=== PATIENT | male | born 1935 | race Caucasian/White ===

== ENCOUNTER 2016-12-21 16:06 | Inpatient (IN) | payer OTHER ==
--- NOTE | ~2016-12-21 | CN ---
Consultation Report [facility] [address] [place]. [address] NAME: XAVIER SUH : 34 STATUS : ADM IN PAT#: [id number] AGE: 81 ADM/REG DATE : 12/21/16 MR#: [id number] REPORT SERV DATE: 12/22/16 DICTATED BY: KOURTNEY KENYON JR DATE: 12/22/16 REPORT STATUS : Draft TRANSCRIBED BY: MODL DATE: 12/22/16 NEPHROLOGY CONSULTATION DATE OF CONSULTATION: 12/22/2016 REASON FOR CONSULTATION: Acute kidney injury. IMPRESSION: 1. Acute kidney injury, presumed, our group has never seen him before. 2. Sepsis syndrome. 3. Community-acquired pneumonia. 4. Respiratory alkalosis. 5. Mixed metabolic acidosis, renal and lactic acidemia. 6. Pre-hospital MATHEUS inhibitor. 7. Unknown cardiac substrate. 8. Implied from medication list, ASCVD, hyperlipidemia, hypertension, and prostatic hypertrophy. 9. Acute melena this morning while on heparin infusion with worsening of azotemia. PLAN: 1. MATHEUS inhibitor interruption as you had done. The patient states he had been compliant with medications up until the time of presentation. 2. Blood pressure support as needed with volume resuscitation and assurance of adequacy of renal blood flow. 3. Preserved Langley catheter. 4. Monitor urinary output and intake, guard for volume overload. 5. Obtain outside records as possible. 6. Antibiotics are reviewed, agree. 7. Group will follow with you. HISTORY OF PRESENT ILLNESS: A gentleman apparently presented to [facility] for evaluation of illness, was found to have a picture consistent with sepsis syndrome, x-ray consistent with pneumonia on the right side and a leukocytosis. He was transferred for admission. He was found to have acute kidney injury with a creatinine of about 3.8 that has risen to a higher value this morning. He had been on MATHEUS inhibitor up until the time of his admission. He admits to poor oral nutritional intake, but had tried to maintain hydration during the week. He had taken a couple of doses of Advil or Aleve to treat myalgias. He has had no nausea, vomiting, or diarrhea. He has had some melena this morning. His hemoglobin is trivially down. The azotemia was worse. He really did not have any trouble voiding prior to hospitalization. He has never been seen by our group. PAST MEDICAL HISTORY: As outlined above, and database is incomplete. FAMILY HISTORY: Noncontributory to this illness. Consultation Report [place] [address] [place]. [address] NAME: XAVIER SUH : 34 STATUS : ADM IN PAT#: [id number] AGE: 81 ADM/REG DATE : 12/21/16 MR#: [id number] REPORT SERV DATE: 12/22/16 DICTATED BY: KOURTNEY KENYON JR DATE: 12/22/16 REPORT STATUS : Draft TRANSCRIBED BY: JOEY DATE: 12/22/16 SOCIAL HISTORY: Reformed smoker. Retired. Lives alone. Responsible for his own self-care. REVIEW OF SYSTEMS: He denies head or neck complaints. He reports shortness of breath and cough, but no chest pain or subjective palpitations. He has had some anorexia, but no nausea, no vomiting, and no diarrhea. He states he has been making urine in adequate amounts during this past week. He does not note a decrease in urinary output or difficulty with micturition. He has had no trouble with lower extremity edema or difficulty with ambulation. No neuromuscular weakness until the last 24-48 hours. Psychiatric, no complaints. PHYSICAL EXAMINATION: CONSTITUTIONAL: Older-appearing male, who awakens easily from sleep. Color is good. Skin is warm and dry, no rashes observed. Turgor is adequate. HEENT: No alopecia is appreciated. Pupils are equal. No scleral icterus. No conjunctival injection. No periorbital edema. No nasal discharge. No epistaxis. The nares are patent. Oropharynx with dry mucous membranes, and no thrush is observed. NECK: No venous distention at 45 degrees, and no carotid bruits are heard. Trachea is midline. Adenopathy is not palpable. LUNGS: He has diffuse adventitious sounds on the right, inspiratory crackles, and some expiratory wheeze. Left-sided breath sounds are clear. Air entry is symmetrical. There is no increased work of breathing appreciated. He is on supplemental oxygen. HEART: Tones are regular to auscultation without audible rub or gallop, although the heart tones are muffled. ABDOMEN: Slightly protuberant, soft, and nontender without palpable visceromegaly. There is no guarding or tenderness. Bruit is not heard. Bowel sounds are present. There is no suprapubic fullness or distention or discomfort on palpation. Langley catheter is draining a darker yellow urine. There is no scrotal or penile edema. RECTAL: Not performed. CVA tenderness is not present. EXTREMITIES: Lower extremity musculature is intact. Pulses are symmetrically diminished. Distal hair loss over the lower legs. SKIN: Intact with good turgor. No cyanosis is observed. NEUROLOGIC: Cognition and speech are normal. He interacts well with the examiner and is cooperative. He moves all extremities. Gait is not observed. PSYCHIATRIC: Affect is good, pleasant, and cooperative. DATA: This morning, sodium 137, potassium 3.6, chloride 102, CO2 of 17, BUN 108, creatinine 4.46, calcium is 8.0. White count 15,000; hemoglobin 12.8; platelets 166. On entry, he had an elevated anion gap, a respiratory alkalosis, and some renal acidemia. DF/MODL Kourtney Kenyon Jr, M.D. Consultation Report [address] [address] NAME: XAVIER SUH : 34 STATUS : ADM IN [facility]#: [id number] AGE: 81 ADM/REG DATE : 12/21/16 MR#: [id number] REPORT SERV DATE: 12/22/16 DICTATED BY: KOURTNEY KENYON JR DATE: 12/22/16 REPORT STATUS : Draft TRANSCRIBED BY: MODL DATE: 12/22/16 / [id number] CC: Robert Gutiérrez,MD SHAYNE Paul MD
--- NOTE | ~2016-12-21 | HP ---
History And Physical [place] [id number] [facility] [place]. [address] NAME: XAVIER SUH : 34 STATUS : ADM IN [facility]#: [id number] AGE: 81 ADM/REG DATE : 12/21/16 MR#: [id number] REPORT SERV DATE: 12/21/16 DICTATED BY: Travis WALLS DATE: 12/21/16 REPORT STATUS : Draft TRANSCRIBED BY: MODL DATE: 12/21/16 DATE OF ADMISSION: 12/21/2016 HISTORY OF PRESENT ILLNESS: An 81-year-old male with history of coronary artery disease, hypertension, BPH, and dyslipidemia presents to [facility] with roughly one week of progressive illness manifesting as fever, chills, weakness, malaise, anorexia, and shortness of breath. He denies rebecca chest pain. Chest x-ray reported from [facility] shows dense right pneumonia. Other issues include acute kidney injury with a creatinine of 3.8 and atrial fibrillation with rapid ventricular response. The patient has been transferred to [facility] for ongoing treatment. He is currently on IV fluids and an amiodarone infusion. He has been given Levaquin x1 dose. PAST MEDICAL HISTORY: Includes coronary artery disease with prior NM, hypertension, dyslipidemia, BPH. SOCIAL HISTORY: Ex-tobacco use. Lives independently with good family support. He is currently a DNR. REVIEW OF SYSTEMS: As per HPI. Remainder of 10-point review of systems negative for hematuria, hematochezia, or melena. He has some low back pain that is chronic in nature for which he takes over-the- counter medication. Otherwise 10-point review of systems is negative. FAMILY HISTORY: Positive for heart disease. PHYSICAL EXAMINATION: GENERAL: This is a well-developed, elderly male patient, conversant, short of breath, but no obvious distress. VITAL SIGNS: Blood pressure is 117/74, heart rate is 140 and irregular, respirations are 26. He is currently afebrile. HEENT: Pupils equal, round, and reactive to light. Extraocular muscles are intact. Oropharynx is clear. NECK: Without JVD, thyromegaly, or bruit. LUNGS: Rhonchi noted on the right with increased respiratory effort. HEART: Irregular. No audible murmur. ABDOMEN: Soft, obese. Positive bowel sounds. EXTREMITIES: No edema. Pulses are +2. Skin without rash or ecchymotic area. Joints with diffuse osteoarthritic change without synovitis or effusion. NEURO: Cranial nerves grossly intact. Motor exam is nonfocal. Sensation normal. Gait was not assessed. GENITOURINARY: Significant for Langley catheter. RECTAL: Deferred. LABORATORY DATA: Available data; sodium 132, potassium 3.8, chloride 98, bicarb 18, BUN 82, creatinine 3.8, glucose is 282. Lactate 3.6. Troponin 0.13. White count is 18.8, hemoglobin 14.9, hematocrit 44.8, platelets are 200. History And Physical [address] [place]. [address] NAME: XAVIER SUH : 34 STATUS : ADM IN PAT#: [id number] AGE: 81 ADM/REG DATE : 12/21/16 MR#: [id number] REPORT SERV DATE: 12/21/16 DICTATED BY: Travis WALLS DATE: 12/21/16 REPORT STATUS : Draft TRANSCRIBED BY: MODL DATE: 12/21/16 IMPRESSION: An 81-year-old male patient with right-sided pneumonia, acute hypoxic respiratory failure, acute kidney injury, and atrial fibrillation with rapid ventricular response. Comorbidities as outlined above. PLAN: Admit to [facility], attending Taqueria Walls. DNR per patient request. Routine vitals. Use Vapotherm O2 to keep sats greater than 90%, diabetic and soft mechanical diet. Data to include hemoglobin A1c, serial troponin, procalcitonin, strep and Legionella urinary antigen, TSH, blood culture x2, repeat CBC and electrolytes, echocardiogram with [facility] to read, hydrate with saline at 125 an hour. The patient will not need DVT prophylaxis as he will be on a heparin infusion, Cardiology protocol, due to his atrial fibrillation. Reasonable pain and nausea control. Level 2 subcu sliding scale insulin to augment glucose control. Rate control for his atrial fibrillation will be with amiodarone per protocol and Cardizem per protocol. A PICC line will be placed by the PICC team this evening. The following home medications will be continued; metoprolol 25 b.i.d., Lipitor 40 daily, aspirin 81 daily, and Flomax 0.4 one daily. We will hold other antihypertensive and nephrotoxic medications until renal function normalizes. Family has been updated at the bedside regarding treatment care plan and they are in agreement. MICHELINE/JOEY Travis Walls M.D. / [id number] CC: Xavier Delgado M.D.
--- NOTE | ~2016-12-21 | CN ---
Consultation Report [facility] [address] [place]. [address] NAME: XAVIER TERRAZAS : 34 STATUS : ADM IN PAT#: [id number] AGE: 81 ADM/REG DATE : 12/21/16 MR#: [id number] REPORT SERV DATE: 12/22/16 DICTATED BY: SHAYNE CEJA DATE: 12/22/16 REPORT STATUS : Draft TRANSCRIBED BY: MODL DATE: 12/22/16 CARDIOLOGY CONSULTATION NOTE DATE OF CONSULTATION: 12/22/2016 REQUESTING PHYSICIAN: Cardiology evaluation was requested by [facility] Emergency Medicine Service prior to admission. The patient has known coronary heart disease and elevated cardiac biomarkers with newly diagnosed atrial fibrillation. REASON FOR CONSULTATION: Elevated cardiac biomarkers and atrial fibrillation with rapid ventricular response. HISTORY OF PRESENT ILLNESS: Mr. Terrazas is a pleasant 81-year-old man with a history of coronary heart disease, status post inferior myocardial infarction with primary percutaneous coronary intervention performed in approximately the year 2013 at [facility]. The patient is well known to me from Cardiology Clinic. He has no previous history of congestive heart failure or atrial fibrillation. The patient was in his usual state of health until approximately one week prior to admission. The patient began to develop fever, chills, and generalized myalgias and malaise. The patient did not seek immediate medical treatment, but had progressive shortness of breath which eventually prompted an emergency room visit at [facility]. At the time of admission to the emergency room, the patient was found to be in atrial fibrillation with a rapid ventricular response. He was started on a diltiazem drip. Also of note, the patient was found to have a leukocytosis. At the time of my discussion with the emergency room physician, a metabolic profile was not available. However, a subsequent metabolic profile demonstrated acute renal failure with a creatinine of approximately 3.8. The patient was also found to have a mildly elevated troponin of approximately 0.12. At that time, the patient was not complaining of any acute chest pain, only extreme dyspnea, fatigue, and malaise. I have requested that the patient be admitted to the Hospital Medicine Service for suspected infectious process. The patient's workup is consistent with a right middle lobe pneumonia with sepsis. At this time, the patient reports that he is breathing relatively easily. He is on high- flow oxygen with a Vapotherm. However, the patient denies chest pain at this time. He is otherwise without specific complaints, and feels slightly improved since he was started on IV fluid rehydration and antibiotics. PAST MEDICAL HISTORY: Significant for coronary artery disease with previous myocardial infarction, hypertension, dyslipidemia, and benign prostatic hypertrophy. The patient also has a history of shingles. PAST SURGICAL HISTORY: Significant for previous percutaneous coronary intervention and Consultation Report [address] [address] NAME: XAVIER TERRAZAS : 34 STATUS : ADM IN PAT#: [id number] AGE: 81 ADM/REG DATE : 12/21/16 MR#: [id number] REPORT SERV DATE: 12/22/16 DICTATED BY: SHAYNE CEJA DATE: 12/22/16 REPORT STATUS : Draft TRANSCRIBED BY: JOEY DATE: 12/22/16 otherwise noncontributory. FAMILY HISTORY: Noncontributory. SOCIAL HISTORY: The patient has a distant history of cigarette smoking. He currently has no known history of tobacco, alcohol, or drug use. The patient lives independently. Of note, the patient has requested DNR status. ALLERGIES: THE PATIENT HAS NO KNOWN MEDICATION ALLERGIES. HOME MEDICATIONS: 1. Acetaminophen 650 mg p.o. twice daily as needed. 2. Amlodipine 5 mg p.o. q.a.m. 3. Aspirin 81 mg p.o. q.a.m. 4. Atorvastatin 40 mg p.o. at bedtime. 5. Lasix 20 mg p.o. q.a.m. 6. Lisinopril 20 mg p.o. twice daily. 7. Metoprolol tartrate 50 mg p.o. twice daily. 8. Tamsulosin 0.4 mg p.o. at bedtime. REVIEW OF SYSTEMS: A complete 12-system review was performed. The patient was complaining of some mild dysuria. He has chronic low back pain. The remainder of the 10 system review is noncontributory except for the pertinent positives and negatives noted in the history of present illness above. PHYSICAL EXAMINATION: VITAL SIGNS: Current temperature is 98.0 degrees Fahrenheit, maximum temperature is 99.6 degrees Fahrenheit, blood pressure systolic ranges 85 to 133 mmHg over 49 to 66 mmHg, heart rate is currently 113 beats per minute and irregularly irregular, respirations 20, oxygen saturation is 98% on high-flow nasal cannula oxygen. CONSTITUTIONAL: The patient is an elderly white man, who is currently mildly tachypneic, but otherwise in no acute distress. EYES: PERRL, EOMI, clear conjunctiva. HEAD/MNT: NCAT with moist mucous membranes and grossly normal hard and soft palate. NECK: Supple with no obvious thyromegaly or lymphadenopathy CARDIOVASCULAR: There is an irregularly irregular rhythm with a variable S1 and a physiologically split second heart sound. No significant murmurs, rubs, or gallops are noted. The jugular venous pressure appears normal at this time. PULMONARY: There are diffuse rhonchorous breath sounds noted in the posterior lung stuart on the right side. The left lung is grossly clear. There is no dullness to percussion noted. ABDOMINAL: Soft, non-tender, non-distended with no hepatosplenomegaly noted. EXTREMITIES: There are changes of chronic venous insufficiency with 1+ pitting edema at the ankles bilaterally. No clubbing or cyanosis is noted at this time. Consultation Report [place] [id number] [place]. [address] NAME: XAVIER TERRAZAS : 34 STATUS : ADM IN LOCATED [facility]IN [facility]#: [id number] AGE: 81 ADM/REG DATE : 12/21/16 MR#: [id number] REPORT SERV DATE: 12/22/16 DICTATED BY: SHAYNE CEJA DATE: 12/22/16 REPORT STATUS : Draft TRANSCRIBED BY: JOEY DATE: 12/22/16 MUSCULOSKELETAL: Grossly normal strength and range of motion in all extremities INTEGUMENTARY: Skin appears intact with no bruises, wounds or active lesions noted NEURO/PSYC: Alert and oriented x3, with no dysarthria, facial droop or lateralizing weakness noted. 12-LEAD EKG: A 12-lead EKG performed at [facility] shows atrial fibrillation with a rapid ventricular response. The patient has a right bundle branch block pattern with secondary ST/T-wave changes. This is unchanged in comparison to a previous EKG dated 05/24/2016. CHEST X-RAY: The patient's chest x-ray is consistent with a right middle lobe pneumonia. There is mild cephalization noted in the left lung field which may be due to prone position. No other acute cardiopulmonary process is identified. LABORATORY DATA: Cell counts [place] [address], hemoglobin 14, hematocrit 40, platelets 165. There is elevated neutrophil count of 14.1. INR is 1.5. Procalcitonin is grossly elevated at 11.92. Arterial blood gas shows a pH of 7.46, pCO2 of 24, PaO2 of 73 on 100% FiO2, B-type natriuretic peptide is mildly elevated at 235, hemoglobin A1c is 6.0. Electrolytes show a sodium of 137, potassium 3.6, chloride is 102, CO2 is 22, BUN is 108, and creatinine is 4.46 with a glucose of 283, calcium is 8.0. Occult blood test is positive. Transthoracic echocardiogram performed on 12/22/2016: This shows normal left ventricular size with low-normal systolic function and an ejection fraction of 50%. There is mild concentric left ventricular hypertrophy. Mild apical hypokinesis is noted. Right ventricular function appears normal. No significant valvular heart disease is reported. ASSESSMENT AND PLAN: 1. Newly diagnosed atrial fibrillation with rapid ventricular response: This was most likely provoked by the patient's pneumonia. For now, the patient will continue on IV heparin drip. The patient has a CHADS2-VASc score of at least 4 for age x2, hypertension, and history of cardiovascular disease. He is therefore at relatively high stroke risk. We would recommend at least temporary oral anticoagulation when appropriate. Should the patient have worsening anemia, it may be reasonable to withhold heparin and an oral anticoagulant if GI bleeding is suspected. Should the patient not convert spontaneously, we will consider transesophageal echocardiography with DC cardioversion early next week. I agree with IV amiodarone and diltiazem as necessary to maintain a heart rate less than or equal to 120 beats per minute. 2. Elevated cardiac biomarkers: This is a demand ischemia secondary to atrial fibrillation rapid ventricular response and sepsis. We would recommend no invasive workup at this time, particularly in the setting of acute renal failure. 3. Acute renal failure: Likely due to sepsis and possible dehydration. We will defer to the primary service, but consider gentle IV fluid rehydration as tolerated. 4. Coronary artery disease: Continue aspirin and atorvastatin if possible. Consultation Report [address] [place]. [address] NAME: XAVIER TERRAZAS : 34 STATUS : ADM IN LOCATED [facility]IN [facility]#: [id number] AGE: 81 ADM/REG DATE : 12/21/16 MR#: [id number] REPORT SERV DATE: 12/22/16 DICTATED BY: SHAYNE CEJA DATE: 12/22/16 REPORT STATUS : Draft TRANSCRIBED BY: JOEY DATE: 12/22/16 I will be off for this weekend. The patient currently has no active cardiovascular issues, aside from his atrial fibrillation. I will follow up with the patient next Sunday. Should acute issues arise, please call [facility] on-call Cardiology. Thank you for allowing me to participate in the care of Mr. Terrazas. JC/JOEY Shayne Ceja MD / [id number] CC: Robert Gutiérrez
--- NOTE | ~2016-12-21 | CN ---
Consultation Report [facility] [address] [place]. [address] NAME: XAVIER TERRAZAS : 34 STATUS : ADM IN [facility]#: [id number] AGE: 81 ADM/REG DATE : 12/21/16 MR#: [id number] REPORT SERV DATE: 12/22/16 DICTATED BY: MAYRA VELA DATE: 12/22/16 REPORT STATUS : Draft TRANSCRIBED BY: MODL DATE: 12/22/16 GI CONSULTATION NOTE DATE OF CONSULTATION: 12/22/2016 REASON FOR CONSULTATION: Melena, decreasing H and H. HISTORY OF PRESENT ILLNESS: Mr. Terrazas is an 81-year-old gentleman with a history of coronary artery disease, hypertension, dyslipidemia, and BPH, who initially presented to [facility] with complaint of fevers, chills, weakness, anorexia, and dyspnea. He does have right-sided pneumonia and is being treated for severe sepsis in the IMCU. He also has metabolic acidosis and elevated lactate level. He had an elevated troponin also during his admission and was placed on the heparin drip and early this morning, had melenic stool. Denies any abdominal pain. No coffee-ground or hematemesis. No nausea or vomiting and has had no further episodes since. His hemoglobin had dropped from 14.1 to 12.8, hematocrit is 40.4 to 37.1, and platelets 166. Heparin obviously has since been discontinued and the patient is placed on a Protonix drip. PAST MEDICAL HISTORY: Coronary artery disease, hypertension, BPH, and dyslipidemia. SOCIAL HISTORY: Former tobacco use. The patient is a DNR. FAMILY HISTORY: Coronary artery disease. MEDICATIONS: Reviewed. ALLERGIES: REVIEWED. PHYSICAL EXAMINATION: GENERAL: The patient is afebrile. VITAL SIGNS: His vital signs have been stable over the past 24 hours. HEENT: Atraumatic, normocephalic, and anicteric. Mucous membranes dry. CARDIAC: S1, S2. CHEST: Rhonchi right lung field. Increased work of breathing. ABDOMEN: The abdomen is soft, obese, nontender, and nondistended. Bowel sounds normoactive. LABORATORY DATA: Show WBC 15.6, hemoglobin 12.8, hematocrit 37.1, and platelets 166. Sodium 137, potassium 3.6, chloride 102, bicarb 22, BUN 108, creatinine 4.46, and glucose 283. IMPRESSION AND PLAN: Possible upper GI bleed, given melenic stools, on heparin drip, however, the heparin has since been discontinued as it was felt that his elevated troponin was more related to demand given his severe sepsis. Given his severe sepsis and pneumonia with increased work of breathing and rhonchi, risk of performing EGD at this time outweighs Consultation Report [place] [id number] [place]. [address] NAME: XAVIER TERRAZAS : 34 STATUS : ADM IN PAT#: [id number] AGE: 81 ADM/REG DATE : 12/21/16 MR#: [id number] REPORT SERV DATE: 12/22/16 DICTATED BY: MAYRA VELA DATE: 12/22/16 REPORT STATUS : Draft TRANSCRIBED BY: JOEY DATE: 12/22/16 the benefits. Continue Protonix drip for now. We will consider switching to 40 mg IV b.i.d. tomorrow pending his serial H and H and any further clinical signs of bleeding. We will continue to follow with you. I will discuss this with Dr. Ilya Reyes who will be covering over the holiday weekend. KASSANDRA/JOEY Mayra Vela MD / [id number] CC: Robert Gutiérrez
--- NOTE | ~2016-12-21 | IDS ---
Interim Discharge Summary [facility] [address] [place]. [address] NAME: XAVIER SUH : 34 STATUS : ADM IN [facility]#: [id number] AGE: 81 ADM/REG DATE : 12/21/16 MR#: [id number] REPORT SERV DATE: 01/05/17 DICTATED BY: XAVIER DELGADO DATE: 01/05/17 REPORT STATUS : Draft TRANSCRIBED BY: MODL DATE: 01/05/17 ADMISSION DATE: 12/21/2016 DISCHARGE DATE: CONSULTANTS: 1. Dr. Cooper Mae, Nephrology. 2. Dr. Jaydon Ceja, Cardiology. 3. Dr. Jaclyn Triindad, GI. 4. Dr. Cisneros, Pulmonary Critical Care. PROBLEM LIST: 1. Hypoxic respiratory failure, currently felt to be due to volume overload. 2. Community-acquired pneumonia, right lung, on admission 12/21/2016. 3. Upper GI bleed due to very large gastric and duodenal ulcer. 4. Status post hemorrhagic shock due to GI bleed. 5. Acute blood loss anemia. 6. Thrombocytopenia probably due to DIC and consumption. 7. Acute kidney injury due to shock, now improved. 8. Hypernatremia, resolved. 9. Metabolic encephalopathy. 10.Status post ventilator-dependent respiratory failure due to hemorrhagic shock. 11.Paroxysmal atrial fibrillation. 12.Previous inferior DC, treated with PCI at [place] in 2013. 13.Coagulopathy with prolonged INR, possibly due to shock and transfusions. HISTORY: The patient was transferred here from an outside hospital, [facility], for severe pneumonia. He was hypoxic. He was admitted straight to the [facility]. He, at that time, was placed on broad-spectrum antibiotics. His procalcitonin was markedly elevated at 11.92, consistent with a bacterial pneumonia. His blood cultures had no growth. The patient had atrial fibrillation with rapid ventricular response. His primary turkey boner, Dr. Ceja, saw him. He was on a heparin drip. He was felt to have demand ischemia. For a time, he was getting amiodarone. The patient developed a massive upper GI bleed, received multiple units of packed red cells and fresh frozen plasma. Hemoglobin at its lowest was 5.2 on 12/27/2016. He was seen by GI, Dr. Jaclyn Trinidad, who took him to EGD on 12/28/2016, he was found to have lots of blood in his stomach, a large gastric ulcer with a visible vessel injected and treated with heat, a very large duodenal ulcer with active hemorrhage, injected and treated with thermal therapy. She wanted him to keep on the Protonix intravenously and stay n.p.o. for several days. With his hemorrhagic shock, he was in the intensive care on the ventilator, but for a fairly short period of time. He was weaned off successfully. He did develop acute kidney injury. At presentation, his creatinine was 4.46, at its worst, 5.22. He was followed here by Nephrology, and his acute kidney injury has resolved. He also had hypernatremia with sodium Interim Discharge Summary [address] [place]. [address] NAME: XAVIER SUH : 34 STATUS : ADM IN PAT#: [id number] AGE: 81 ADM/REG DATE : 12/21/16 MR#: [id number] REPORT SERV DATE: 01/05/17 DICTATED BY: XAVIER DELGADO DATE: 01/05/17 REPORT STATUS : Draft TRANSCRIBED BY: JOEY DATE: 01/05/17 up to 164, it is currently 145. Today is the first that I am seeing him. He had audible wheezes as soon as I came in the room. His nursing staff has had to increase his FiO2 from 2 L up to 6 L. Over the last six days, he has over 10 L positive in fluid. We stopped his IV saline and I am beginning diuresis. Hopefully, he will be able to start his oral diet and succeed at being able to wean off TPN in the next few days. Nurses tell me that he has had intermittent confusion and agitation, and Precedex has been able to help calm him. He is currently n.p.o., but GI did indicate if he was alert and able to swallow, that they would be comfortable letting him start some clear liquids and advance on his diet. If that is done, TPN could be weaned off and help reduce his volume overload scenario. He has 2+ edema in all four extremities. He is noted to have a coagulopathy. His INR on presentation was 1.5, but by 12/27/2016 it was 5.3, this may be part of shock. However, by 01/03/2017, his INR is still 1.8. As far as I am aware, he did not receive any warfarin. Echocardiogram on 12/22/2016 was technically difficult. His left atrium was 3.8 cm. His left ventricular ejection fraction was 50%. He had mild concentric LVH with mild apical hypokinesis. No evidence for apical thrombus. Obviously, he is not on any anticoagulation with his massive GI bleed. His current portable chest x-ray that was just completed looks like there is much more volume overload than on previous images, so I have initiated diuresis. I am asking Speech to do a bedside swallow assessment, but I want to try him on some clear liquids and see how he tolerates that. As above, if he tolerates orals, it would be ideal to taper his diet up and taper the TPN off to reduce his volume overload status. JULIOG/MODL Xavier Delgado M.D. / [id number] CC: Robert Leyva WILLIAM P
--- NOTE | ~2016-12-21 | DS ---
Discharge Summary [facility] [address] [place]. [address] NAME: XAVIER SUH : 34 STATUS : DIS IN PAT#: [id number] AGE: 81 ADM/REG DATE : 12/21/16 MR#: [id number] REPORT SERV DATE: 01/09/17 DICTATED BY: GREG MENG DATE: 01/08/17 REPORT STATUS : Draft TRANSCRIBED BY: MODL DATE: 01/08/17 ADMISSION DATE: 12/21/2016 DISCHARGE DATE: 01/08/2017 DISCHARGE DIAGNOSES: 1. Acute respiratory failure with hypoxia. 2. Acute blood loss anemia with hemorrhagic shock. 3. Acute gastrointestinal bleed, ulcer bleeding, the patient was not on oral diet due to the ulcer bleeding. He was maintained on TPN. 4. Metabolic encephalopathy. 5. Hypervolemia. 6. Atrial fibrillation. 7. Acute kidney injury. CONSULTANTS: 1. Dr. Trinidad. 2. [facility] [place]. 3. Critical Care Management. HISTORY OF PRESENT ILLNESS: This is an 81-year-old male patient, who came to the hospital with respiratory failure. Please see dictated interim discharge summary. HOSPITAL COURSE: I resumed care three days prior to discharge. The patient remained in IMCU with BiPAP support due to the worsening respiratory failure with hypoxia and is thought to be related with volume overload at the end of his hospital course. He was remaining in DNR status. He was kept on a TPN; however, he did have a speech evaluation last Sunday. He was able to be taking oral diet with pureed diet; however, at the same time, his mental status and his breathing status got worse. He was maintained on BiPAP when I assumed the case three days ago. He was made a DNR after a long discussion with other physicians multiple times prior to my care. The patient was treated with intravenous diuretics with maximum support of BiPAP and he was maintained on TPN. However, his respiratory status got worse and the patient's family has been notified and they decided to withdraw the care due to his worsening status with not improving clinical status along with his wishes initially discussed with the family. Therefore, the noninvasive ventilator support was withdrawn and the patient was pronounced to be at 1725 hours, 02/07/2017. DICTATED BY: Greg Meng M.D. EKL/MODL Greg Meng M.D. Discharge Summary [address] [address] NAME: XAVIER SUH : 34 STATUS : DIS IN PAT#: [id number] AGE: 81 ADM/REG DATE : 12/21/16 MR#: [id number] REPORT SERV DATE: 01/09/17 DICTATED BY: GREG MENG DATE: 01/08/17 REPORT STATUS : Draft TRANSCRIBED BY: MODL DATE: 01/08/17 / [id number] CC: Robert Macdonald
--- NOTE | ~2016-12-21 | EGD ---
EGD REPORT [facility] [address] [address] NAME: XAVIER TERRAZAS : 34 STATUS : ADM IN PAT#: [id number] AGE: 81 ADM/REG DATE : 12/21/16 MR#: [id number] REPORT SERV DATE: 12/28/16 DICTATED BY: MAYRA VELA DATE: 12/28/16 REPORT STATUS : Draft TRANSCRIBED BY: [employer] DATE: 12/28/16 [facility] Patient Name: Xavier Terrazas Date of : 1935 Attending MD: MAYRA VELA, Procedure Date No Time: 12/27/2016 Procedure: Upper GI endoscopy Indications: Acute post hemorrhagic anemia, Coffee-ground emesis, Melena Medicines: Propofol per Anesthesia Complications: No immediate complications. Estimated blood loss: Minimal. Procedure: Pre-Anesthesia Assessment: - ASA Grade Assessment: IV - A patient with severe systemic disease that is a constant threat to life. After obtaining informed consent, the endoscope was passed under direct vision. Throughout the procedure, the patient's blood pressure, pulse, and oxygen saturations were monitored continuously. The GIF [id number] was introduced through the mouth, and advanced to the duodenal bulb. The upper GI endoscopy was performed with difficulty due to excessive bleeding. Successful completion of the procedure was aided by controlling the bleeding and lavage. The patient tolerated the procedure well. Findings: The examined esophagus was normal. The Z-line was found 42 cm from the incisors. Clotted blood was found in the gastric fundus and in the gastric body. Extensive lavage was administered and despite attempts at clearance the fundus was not completely visualized. One non-bleeding cratered gastric ulcer with a visible vessel was found in the cardia. The lesion was 12 mm in largest dimension. Area was successfully injected with 3 mL of a 1:10,000 solution of epinephrine for hemostasis. Coagulation for hemostasis using bipolar probe was successful. Estimated blood loss: none. One spurting cratered duodenal ulcer with spurting, pulsating hemorrhage (Brayan Class Ia), suggestive of arterial bleed, and there were two visible vessels were found in the duodenal bulb. The lesion was 25 mm in largest dimension and took up approximately 50% of the circumferential lumen. Hemostatic clipping was unsuccessful despite one attempt as the area of pulsating hemorrhage was in the middle of the ulcer and surrounded by deep ulcerative and friable tissue and no healthy mucosa was near enough to grab with the endoclip. Area was subsequently EGD REPORT [address] [place]. [address] NAME: XAVIER TERRAZAS : 34 STATUS : ADM IN [facility]#: [id number] AGE: 81 ADM/REG DATE : 12/21/16 MR#: [id number] REPORT SERV DATE: 12/28/16 DICTATED BY: MAYRA VELA DATE: 12/28/16 REPORT STATUS : Draft TRANSCRIBED BY: [facility] DATE: 12/28/16 successfully injected with 12 mL of a 1:10,000 solution of epinephrine for hemostasis. Coagulation for hemostasis using bipolar probe was successful. Estimated blood loss was minimal. Clotted blood was found in the duodenal bulb and obstructed advancement into the second portion of the duodenum and so D2 was not visualized. Impression: - Normal esophagus. - Z-line 42 cm from the incisors. - Clotted blood in the gastric fundus and in the gastric body. - Gastric ulcer containing visible vessel. Injected. Treated with thermal therapy. - One duodenal ulcer with spurting hemorrhage (Brayan Class Ia). Treatment not successful. Injected. Treated with thermal therapy. - Blood in the duodenal bulb. Recommendation: - NPO. - Continue Protonix (pantoprazole): 8 mg/hr IV by continuous infusion. - Check hemoglobin and hematocrit q 6 hours until stable and transfuse as needed. - Check platelets now. - Maintain/optimize hemodynamic status. Procedure Code(s): --- Professional --- 28654, Esophagogastroduodenoscopy, flexible, transoral; with control of bleeding, any method Diagnosis Code(s): --- Professional --- K92.2, Gastrointestinal hemorrhage, unspecified K25.4, Chronic or unspecified gastric ulcer with hemorrhage K26.4, Chronic or unspecified duodenal ulcer with hemorrhage D62, Acute posthemorrhagic anemia K92.0, Hematemesis K92.1, Melena CPT copyright 2013 [employer]. All rights reserved. The codes documented in this report are preliminary and upon medical biller coder review may be revised to meet current compliance requirements. MAYRA VELA, ALESIA REPORT [facility] [address] [address] NAME: XAVIER TERRAZAS : 34 STATUS : ADM IN [facility]#: [id number] AGE: 81 ADM/REG DATE : 12/21/16 MR#: [id number] REPORT SERV DATE: 12/28/16 DICTATED BY: MAYRA VELA DATE: 12/28/16 REPORT STATUS : Draft TRANSCRIBED BY: [employer] DATE: 12/28/16 12/28/2016 9:31 AM This report has been signed electronically. Number of Addenda: 0 Note Initiated On: 12/27/2016 7:45 PM Scope Withdrawal Time 0 hours 0 minutes 0 seconds [address] [address]
[2016-12-21] MEDS ORDERED: LOP50 PO (16:59)
[2016-12-21] MEDS ORDERED: PRIN20 PO (16:59)
[2016-12-21] MEDS ORDERED: L20 PO (17:00)
[2016-12-21] MEDS ORDERED: ASAB PO (17:00)
[2016-12-21] MEDS ORDERED: FLOMAX4 PO (17:00)
[2016-12-21] MEDS ORDERED: LIPITOR40 PO (17:00)
[2016-12-21] MEDS ORDERED: NORV5 PO (17:00)
[2016-12-21] MEDS ORDERED: T PO (17:01)
[2016-12-21 19:32] LABS: ULTRASENSITIVE TSH 0.558 MCIU/ML (0.358-3.740)
[2016-12-21 20:58] LABS: BASOPHILS 0.1 %; BASOPHILS ABSOLUTE 0.02 10/3/uL (0.0-0.16); EOSINOPHILS 0 %; HEMATOCRIT 40.4 % (40.0-51.0); HEMOGLOBIN 14.1 g/dL (13.6-17.8); IMMATURE GRANULOCYTES 0.4 %; IMMATURE GRANULOCYTES ABSOLUTE 0.08 10/3/uL (0.0-0.11); LYMPHOCYTES ABSOLUTE 1.07 10/3/uL (0.67-4.30); MEAN CORPUS HGB CONC 34.9 g/dL (32.0-36.0); MEAN CORPUSCULAR VOLUME 83.1 fL (80-100); MONOCYTES 14.5 %; NEUTROPHILS ABSOLUTE 14.12 10/3/uL (2.02-8.40); PLATELET COUNT 165 10/3/uL (150-400); RBC DISTRIBUTION WIDTH 15.7 % (12.0-16.0); RED CELL COUNT 4.86 10/6/uL (4.7-6.1); WHITE BLOOD CELLS 17.9 10/3/uL (4.5-10.5)
[2016-12-21 21:01] LABS: MANUAL DIFF NO %
[2016-12-21 21:11] LABS: INTERNATIONAL NORMAL RATI 1.5 UNITS (-); PARTIAL THROMBO TIME 37.4 SEC (22.5-37.2); PROTIME (NOT ORD) 18.4 SEC (12.0-14.5)
[2016-12-21 21:15] LABS: PROCALCITONIN 11.92 ng/mL (<0.5)
[2016-12-21 21:46] LABS: ALLENS TEST Pos; BE (BASE EXCESS) -4.9 MEQ/L (0 +/- 2.5); CARBOXYHEMOGLOBIN 0.8 % (0-3); HEMOBLOGIN CONTENT 13.8 G/DL (14-18); INSTRUMENT SERIAL # 8083; METHEMOGLOBIN 0.3 % (0-3); O2 CONTENT 18.2 VOL% (18-24); OPERATOR ID 30013; PCO2 (CO2 TENSION) 24 MMHG (35-45); PO2 (O2 TENSION) 73 MMHG (79-93); SAMPLE Arterial; pH 7.46 (7.37-7.43)
[2016-12-22 04:09] LABS: BASOPHILS 0.1 %; BASOPHILS ABSOLUTE 0.01 10/3/uL (0.0-0.16); EOSINOPHILS 0 %; HEMATOCRIT 37.1 % (40.0-51.0); HEMOGLOBIN 12.8 g/dL (13.6-17.8); IMMATURE GRANULOCYTES 0.6 %; LYMPHOCYTES 8.7 %; LYMPHOCYTES ABSOLUTE 1.36 10/3/uL (0.67-4.30); MEAN CORPUS HGB CONC 34.5 g/dL (32.0-36.0); MEAN CORPUSCULAR VOLUME 84.1 fL (80-100); MEAN PLATELET VOLUME 10.7 fL (9.2-13.0); MONOCYTES 11.5 %; NEUTROPHILS 79.1 %; NEUTROPHILS ABSOLUTE 12.35 10/3/uL (2.02-8.40); PLATELET COUNT 166 10/3/uL (150-400); RBC DISTRIBUTION WIDTH 15.7 % (12.0-16.0); RED CELL COUNT 4.41 10/6/uL (4.7-6.1); WHITE BLOOD CELLS 15.6 10/3/uL (4.5-10.5)
[2016-12-22 04:12] LABS: MANUAL DIFF NO %
[2016-12-22 04:29] LABS: CHLORIDE, SERUM 102 MMOL/L (96-112); CO2 (CARBON DIOXIDE) 22 MMOL/L (24-34); CREATININE 4.46 MG/DL (0.70-1.30); GFR AFRICAN AMERICAN 13 ML/MIN (>=60); GFR NON AFRICAN AMERICAN 11 ML/MIN (>=60); GLUCOSE, SERUM 283 MG/DL (60-99); POTASSIUM, SERUM 3.6 MMOL/L (3.5-5.3); SODIUM, SERUM 137 MMOL/L (135-148)
[2016-12-22 04:31] LABS: BUN (BLOOD UREA NITROGEN) 108 MG/DL (6-23)
[2016-12-23 04:24] LABS: BASOPHILS 0 %; EOSINOPHILS 0.1 %; EOSINOPHILS ABSOLUTE 0.01 10/3/uL (0.0-0.53); IMMATURE GRANULOCYTES 0.6 %; IMMATURE GRANULOCYTES ABSOLUTE 0.05 10/3/uL (0.0-0.11); LYMPHOCYTES 9.1 %; LYMPHOCYTES ABSOLUTE 0.78 10/3/uL (0.67-4.30); MEAN CORPUS HGB CONC 33.8 g/dL (32.0-36.0); MEAN CORPUSCULAR HEMOGLOB 28.6 pg (26.0-34.0); MEAN CORPUSCULAR VOLUME 84.5 fL (80-100); MEAN PLATELET VOLUME 10.4 fL (9.2-13.0); MONOCYTES 12.5 %; MONOCYTES ABSOLUTE 1.07 10/3/uL (0.21-1.20); NEUTROPHILS 77.7 %; NEUTROPHILS ABSOLUTE 6.66 10/3/uL (2.02-8.40); PLATELET COUNT 147 10/3/uL (150-400)
[2016-12-23 04:25] LABS: HEMOGLOBIN 9.8 g/dL (13.6-17.8); RED CELL COUNT 3.43 10/6/uL (4.7-6.1); WHITE BLOOD CELLS 8.6 10/3/uL (4.5-10.5)
[2016-12-23 04:27] LABS: MANUAL DIFF NO %
[2016-12-23 04:41] LABS: A/G RATIO 0.5 (0.7-1.9); ALBUMIN 1.5 G/DL (3.5-5.0); ALKALINE PHOSPHATASE 81 U/L (45-117); CALCIUM, SERUM 7.3 MG/DL (8.5-10.4); CHLORIDE, SERUM 109 MMOL/L (96-112); GLOBULIN 2.8 G/DL (2.5-4.1); POTASSIUM, SERUM 3.5 MMOL/L (3.5-5.3); SGOT(AST) 102 U/L (5-40); SGPT(ALT) 55 U/L (5-65); SODIUM, SERUM 138 MMOL/L (135-148); TOTAL BILIRUBIN 0.9 MG/DL (0-1.2); TOTAL PROTEIN 4.3 G/DL (6.0-8.5)
[2016-12-23 04:42] LABS: BUN (BLOOD UREA NITROGEN) 140 MG/DL (6-23); CO2 (CARBON DIOXIDE) 17 MMOL/L (24-34); CREATININE 5.22 MG/DL (0.70-1.30); GFR AFRICAN AMERICAN 11 ML/MIN (>=60); GFR NON AFRICAN AMERICAN 9 ML/MIN (>=60); GLUCOSE, SERUM 188 MG/DL (60-99)
[2016-12-23 10:50] LABS: TROPONIN I 0.03 NG/ML (<0.05)
[2016-12-23 10:58] LABS: ASCORBIC ACID (UR NOT ORDER) NEG (NEG); BILIRUBIN, URINE NEGATIVE (NEG); KETONE, URINE NEGATIVE (NEG); LEUKOCYTE ESTERASE(NOT OR TRACE (NEG); WBC (NOT ORDERED) (RFLEX) 6 (0-5)
[2016-12-23 12:19] LABS: HEMOGLOBIN 9.1 g/dL (13.6-17.8)
[2016-12-24 06:26] LABS: BASOPHILS 0.2 %; BASOPHILS ABSOLUTE 0.01 10/3/uL (0.0-0.16); EOSINOPHILS 2.7 %; EOSINOPHILS ABSOLUTE 0.16 10/3/uL (0.0-0.53); HEMATOCRIT 25.8 % (40.0-51.0); HEMOGLOBIN 8.6 g/dL (13.6-17.8); IMMATURE GRANULOCYTES 0.9 %; IMMATURE GRANULOCYTES ABSOLUTE 0.05 10/3/uL (0.0-0.11); LYMPHOCYTES 13.7 %; MEAN CORPUS HGB CONC 33.3 g/dL (32.0-36.0); MEAN CORPUSCULAR HEMOGLOB 28.1 pg (26.0-34.0); MEAN CORPUSCULAR VOLUME 84.3 fL (80-100); MEAN PLATELET VOLUME 10.6 fL (9.2-13.0); MONOCYTES 11.8 %; MONOCYTES ABSOLUTE 0.69 10/3/uL (0.21-1.20); NEUTROPHILS 70.7 %; NEUTROPHILS ABSOLUTE 4.12 10/3/uL (2.02-8.40); PLATELET COUNT 131 10/3/uL (150-400); RBC DISTRIBUTION WIDTH 16.2 % (12.0-16.0); RED CELL COUNT 3.06 10/6/uL (4.7-6.1); WHITE BLOOD CELLS 5.8 10/3/uL (4.5-10.5)
[2016-12-24 06:30] LABS: MANUAL DIFF NO %
[2016-12-24 06:38] LABS: % IRON SAT 20 % (20-50); CALCIUM, SERUM 8.2 MG/DL (8.5-10.4); CHLORIDE, SERUM 113 MMOL/L (96-112); CO2 (CARBON DIOXIDE) 18 MMOL/L (24-34); FERRITIN 1759 NG/ML (26-388); IRON BINDING CAPACITY 99 MCG/DL (250-450); IRON, SERUM 20 MCG/DL (35-150); PHOSPHORUS, SERUM 3.6 MG/DL (2.5-4.5); POTASSIUM, SERUM 3.4 MMOL/L (3.5-5.3); SGOT(AST) 151 U/L (5-40); SGPT(ALT) 72 U/L (5-65); SODIUM, SERUM 144 MMOL/L (135-148); TOTAL BILIRUBIN 0.7 MG/DL (0-1.2); TOTAL PROTEIN 4.5 G/DL (6.0-8.5)
[2016-12-24 06:39] LABS: A/G RATIO 0.7 (0.7-1.9); ALBUMIN 1.9 G/DL (3.5-5.0); ALKALINE PHOSPHATASE 109 U/L (45-117); BUN (BLOOD UREA NITROGEN) 128 MG/DL (6-23); CREATININE 4.33 MG/DL (0.70-1.30); GFR AFRICAN AMERICAN 14 ML/MIN (>=60); GFR NON AFRICAN AMERICAN 12 ML/MIN (>=60); GLOBULIN 2.6 G/DL (2.5-4.1); GLUCOSE, SERUM 91 MG/DL (60-99)
[2016-12-24 13:03] LABS: HEMATOCRIT 25.1 % (40.0-51.0); HEMOGLOBIN 8.4 g/dL (13.6-17.8)
[2016-12-24 18:57] LABS: HEMATOCRIT 26.4 % (40.0-51.0); HEMOGLOBIN 8.8 g/dL (13.6-17.8)
[2016-12-25 04:43] LABS: BASOPHILS 0.2 %; BASOPHILS ABSOLUTE 0.01 10/3/uL (0.0-0.16); EOSINOPHILS 2.3 %; EOSINOPHILS ABSOLUTE 0.15 10/3/uL (0.0-0.53); HEMOGLOBIN 9.2 g/dL (13.6-17.8); IMMATURE GRANULOCYTES 1.2 %; IMMATURE GRANULOCYTES ABSOLUTE 0.08 10/3/uL (0.0-0.11); LYMPHOCYTES 11.8 %; LYMPHOCYTES ABSOLUTE 0.76 10/3/uL (0.67-4.30); MEAN CORPUS HGB CONC 34.1 g/dL (32.0-36.0); MEAN CORPUSCULAR HEMOGLOB 28.8 pg (26.0-34.0); MEAN CORPUSCULAR VOLUME 84.6 fL (80-100); MEAN PLATELET VOLUME 10.3 fL (9.2-13.0); MONOCYTES 13.4 %; MONOCYTES ABSOLUTE 0.86 10/3/uL (0.21-1.20); NEUTROPHILS 71.1 %; NEUTROPHILS ABSOLUTE 4.57 10/3/uL (2.02-8.40); PLATELET COUNT 162 10/3/uL (150-400); RED CELL COUNT 3.19 10/6/uL (4.7-6.1); WHITE BLOOD CELLS 6.4 10/3/uL (4.5-10.5)
[2016-12-25 04:45] LABS: MANUAL DIFF NO %
[2016-12-25 04:57] LABS: CALCIUM, SERUM 8.3 MG/DL (8.5-10.4); CHLORIDE, SERUM 116 MMOL/L (96-112); CO2 (CARBON DIOXIDE) 19 MMOL/L (24-34); PHOSPHORUS, SERUM 3.6 MG/DL (2.5-4.5); POTASSIUM, SERUM 3.6 MMOL/L (3.5-5.3); SODIUM, SERUM 147 MMOL/L (135-148)
[2016-12-25 05:03] LABS: BUN (BLOOD UREA NITROGEN) 110 MG/DL (6-23); CREATININE 3.41 MG/DL (0.70-1.30); GFR AFRICAN AMERICAN 18 ML/MIN (>=60); GFR NON AFRICAN AMERICAN 16 ML/MIN (>=60); GLUCOSE, SERUM 138 MG/DL (60-99)
[2016-12-26 04:35] LABS: BASOPHILS 0.2 %; BASOPHILS ABSOLUTE 0.02 10/3/uL (0.0-0.16); EOSINOPHILS 0.8 %; EOSINOPHILS ABSOLUTE 0.08 10/3/uL (0.0-0.53); HEMATOCRIT 23.3 % (40.0-51.0); HEMOGLOBIN 7.6 g/dL (13.6-17.8); IMMATURE GRANULOCYTES 4.4 %; IMMATURE GRANULOCYTES ABSOLUTE 0.44 10/3/uL (0.0-0.11); LYMPHOCYTES 9.3 %; LYMPHOCYTES ABSOLUTE 0.92 10/3/uL (0.67-4.30); MANUAL DIFF NO %; MEAN CORPUS HGB CONC 32.6 g/dL (32.0-36.0); MEAN CORPUSCULAR HEMOGLOB 28.1 pg (26.0-34.0); MEAN CORPUSCULAR VOLUME 86.3 fL (80-100); MEAN PLATELET VOLUME 9.7 fL (9.2-13.0); MONOCYTES 7.9 %; MONOCYTES ABSOLUTE 0.78 10/3/uL (0.21-1.20); NEUTROPHILS 77.4 %; NEUTROPHILS ABSOLUTE 7.65 10/3/uL (2.02-8.40); PLATELET COUNT 229 10/3/uL (150-400); RBC DISTRIBUTION WIDTH 16.6 % (12.0-16.0); WHITE BLOOD CELLS 9.9 10/3/uL (4.5-10.5)
[2016-12-26 04:51] LABS: A/G RATIO 0.6 (0.7-1.9); ALBUMIN 1.7 G/DL (3.5-5.0); CALCIUM, SERUM 8.2 MG/DL (8.5-10.4); CHLORIDE, SERUM 122 MMOL/L (96-112); CO2 (CARBON DIOXIDE) 22 MMOL/L (24-34); GLOBULIN 2.8 G/DL (2.5-4.1); PHOSPHORUS, SERUM 3.1 MG/DL (2.5-4.5); POTASSIUM, SERUM 4.1 MMOL/L (3.5-5.3); SGOT(AST) 230 U/L (5-40); SGPT(ALT) 122 U/L (5-65); SODIUM, SERUM 153 MMOL/L (135-148); TOTAL BILIRUBIN 0.5 MG/DL (0-1.2); TOTAL PROTEIN 4.5 G/DL (6.0-8.5)
[2016-12-26 04:52] LABS: ALKALINE PHOSPHATASE 522 U/L (45-117); BUN (BLOOD UREA NITROGEN) 99 MG/DL (6-23); CREATININE 2.76 MG/DL (0.70-1.30); GFR AFRICAN AMERICAN 24 ML/MIN (>=60); GFR NON AFRICAN AMERICAN 20 ML/MIN (>=60); GLUCOSE, SERUM 190 MG/DL (60-99)
[2016-12-27 04:00] LABS: INTERNATIONAL NORMAL RATI 5.3 UNITS (-); PROTIME (NOT ORD) 48.3 SEC (12.0-14.5)
[2016-12-27 04:02] LABS: A/G RATIO 0.7 (0.7-1.9); ALBUMIN 1.8 G/DL (3.5-5.0); CALCIUM, SERUM 7.9 MG/DL (8.5-10.4); CHLORIDE, SERUM 121 MMOL/L (96-112); CO2 (CARBON DIOXIDE) 19 MMOL/L (24-34); GLOBULIN 2.7 G/DL (2.5-4.1); GLUCOSE, SERUM 204 MG/DL (60-99); PHOSPHORUS, SERUM 3.6 MG/DL (2.5-4.5); POTASSIUM, SERUM 4.3 MMOL/L (3.5-5.3); SGOT(AST) 508 U/L (5-40); SGPT(ALT) 243 U/L (5-65); SODIUM, SERUM 151 MMOL/L (135-148); TOTAL BILIRUBIN 0.5 MG/DL (0-1.2); TOTAL PROTEIN 4.5 G/DL (6.0-8.5)
[2016-12-27 04:03] LABS: ALKALINE PHOSPHATASE 300 U/L (45-117); BUN (BLOOD UREA NITROGEN) 125 MG/DL (6-23); CREATININE 4.22 MG/DL (0.70-1.30); GFR AFRICAN AMERICAN 14 ML/MIN (>=60); GFR NON AFRICAN AMERICAN 12 ML/MIN (>=60); HEMOGLOBIN 8.5 g/dL (13.6-17.8); MEAN CORPUS HGB CONC 33.1 g/dL (32.0-36.0); MEAN CORPUSCULAR HEMOGLOB 29.3 pg (26.0-34.0); MEAN CORPUSCULAR VOLUME 88.6 fL (80-100); MEAN PLATELET VOLUME 9.9 fL (9.2-13.0); NUCLEATED RED BLOOD CELLS 1.1 /100WBC (0-0); RBC DISTRIBUTION WIDTH 16.1 % (12.0-16.0)
[2016-12-27 04:04] LABS: HEMATOCRIT 25.7 % (40.0-51.0); MANUAL DIFF YES %; PLATELET COUNT 355 10/3/uL (150-400); WHITE BLOOD CELLS 31.1 10/3/uL (4.5-10.5)
[2016-12-27 04:11] LABS: BAND NEUTROPHILS 3 %; EOSINOPHILS 2 %; EOSINOPHILS ABSOLUTE (CALC) 0.62 10/3/uL (0.0-0.53); IMMATURE GRANS ABSOLUTE (CALC) 1.56 10/3/uL (0.0-0.11); LYMPHOCYTES 7 %; LYMPHOCYTES ABSOLUTE (CALC) 2.18 10/3/uL (0.67-4.30); METAMYELOCYTES 3 %; MONOCYTES 5 %; MONOCYTES ABSOLUTE (CALC) 1.56 10/3/uL (0.21-1.20); MYELOCYTES 2 %; NEUTROPHILS ABSOLUTE (CALC) 25.19 10/3/uL (2.02-8.40); PLATELET ESTIMATE ADQ (ADEQUATE); RBC MORPHOLOGY NORM (NORMAL); SEGMENTED NEUTROPHIL (0) 78 %; TOTAL NUCLEATED CELLS 100; TOXIC GRANULATION 1+
[2016-12-27 07:47] LABS: MEAN CORPUS HGB CONC 32.7 g/dL (32.0-36.0); MEAN CORPUSCULAR HEMOGLOB 29.5 pg (26.0-34.0); MEAN CORPUSCULAR VOLUME 90.3 fL (80-100); MEAN PLATELET VOLUME 10.4 fL (9.2-13.0); NUCLEATED RED BLOOD CELLS 5.8 /100WBC (0-0); PLATELET COUNT 366 10/3/uL (150-400); RBC DISTRIBUTION WIDTH 16.4 % (12.0-16.0); RED CELL COUNT 1.76 10/6/uL (4.7-6.1); WHITE BLOOD CELLS 46.7 10/3/uL (4.5-10.5)
[2016-12-27 07:48] LABS: HEMATOCRIT 15.9 % (40.0-51.0); HEMOGLOBIN 5.2 g/dL (13.6-17.8); MANUAL DIFF YES %
[2016-12-27 08:03] LABS: BUN (BLOOD UREA NITROGEN) 112 MG/DL (6-23); CALCIUM, SERUM 6.3 MG/DL (8.5-10.4); CHLORIDE, SERUM 116 MMOL/L (96-112); CO2 (CARBON DIOXIDE) 16 MMOL/L (24-34); CREATININE 4.06 MG/DL (0.70-1.30); GFR AFRICAN AMERICAN 15 ML/MIN (>=60); GFR NON AFRICAN AMERICAN 13 ML/MIN (>=60); GLUCOSE, SERUM 454 MG/DL (60-99); PHOSPHORUS, SERUM 6.5 MG/DL (2.5-4.5); POTASSIUM, SERUM 3.9 MMOL/L (3.5-5.3); SODIUM, SERUM 150 MMOL/L (135-148)
[2016-12-27 08:12] LABS: BAND NEUTROPHILS 8 %; EOSINOPHILS 2 %; EOSINOPHILS ABSOLUTE (CALC) 0.93 10/3/uL (0.0-0.53); IMMATURE GRANS ABSOLUTE (CALC) 0.93 10/3/uL (0.0-0.11); LYMPHOCYTES 11 %; LYMPHOCYTES ABSOLUTE (CALC) 5.14 10/3/uL (0.67-4.30); METAMYELOCYTES 2 %; POLYCHROMASIA 3+ (>10/OIF) (0-1/OIF); SEGMENTED NEUTROPHIL (0) 77 %; TOTAL NUCLEATED CELLS 100
[2016-12-27 08:13] LABS: PLATELET ESTIMATE ADQ (ADEQUATE)
[2016-12-27 12:54] LABS: HEMOGLOBIN 6.7 g/dL (13.6-17.8); MEAN CORPUS HGB CONC 32.7 g/dL (32.0-36.0); MEAN CORPUSCULAR HEMOGLOB 28.9 pg (26.0-34.0); MEAN CORPUSCULAR VOLUME 88.4 fL (80-100); MEAN PLATELET VOLUME 9.8 fL (9.2-13.0); PLATELET COUNT 404 10/3/uL (150-400); RED CELL COUNT 2.32 10/6/uL (4.7-6.1); WHITE BLOOD CELLS 52.7 10/3/uL (4.5-10.5)
[2016-12-27 12:55] LABS: HEMATOCRIT 20.5 % (40.0-51.0); MANUAL DIFF YES %
[2016-12-27 13:04] LABS: INTERNATIONAL NORMAL RATI 3.5 UNITS (-); PROTIME (NOT ORD) 34.6 SEC (12.0-14.5)
[2016-12-27 13:10] LABS: BAND NEUTROPHILS 7 %; IMMATURE GRANS ABSOLUTE (CALC) 2.64 10/3/uL (0.0-0.11); LYMPHOCYTES 4 %; LYMPHOCYTES ABSOLUTE (CALC) 2.11 10/3/uL (0.67-4.30); METAMYELOCYTES 5 %; MONOCYTES 6 %; MONOCYTES ABSOLUTE (CALC) 3.16 10/3/uL (0.21-1.20); SEGMENTED NEUTROPHIL (0) 78 %; TOTAL NUCLEATED CELLS 100
[2016-12-27 13:11] LABS: PLATELET ESTIMATE SLT INC (ADEQUATE); RBC MORPHOLOGY NORM (NORMAL)
[2016-12-27 18:18] LABS: BASOPHILS 0.6 %; BASOPHILS ABSOLUTE 0.23 10/3/uL (0.0-0.16); EOSINOPHILS 0.3 %; EOSINOPHILS ABSOLUTE 0.12 10/3/uL (0.0-0.53); IMMATURE GRANULOCYTES 7.7 %; IMMATURE GRANULOCYTES ABSOLUTE 2.76 10/3/uL (0.0-0.11); INTERNATIONAL NORMAL RATI 1.6 UNITS (-); LYMPHOCYTES 9.7 %; LYMPHOCYTES ABSOLUTE 3.51 10/3/uL (0.67-4.30); MEAN CORPUS HGB CONC 33.3 g/dL (32.0-36.0); MEAN CORPUSCULAR VOLUME 86.9 fL (80-100); MEAN PLATELET VOLUME 9.4 fL (9.2-13.0); MONOCYTES 7.2 %; MONOCYTES ABSOLUTE 2.59 10/3/uL (0.21-1.20); NEUTROPHILS 74.5 %; NEUTROPHILS ABSOLUTE 26.83 10/3/uL (2.02-8.40); NUCLEATED RED BLOOD CELLS 4.3 /100WBC (0-0); RBC DISTRIBUTION WIDTH 15.8 % (12.0-16.0)
[2016-12-27 18:19] LABS: HEMATOCRIT 15.3 % (40.0-51.0); HEMOGLOBIN 5.1 g/dL (13.6-17.8); PLATELET COUNT 259 10/3/uL (150-400); PROTIME (NOT ORD) 19.1 SEC (12.0-14.5); RED CELL COUNT 1.76 10/6/uL (4.7-6.1)
[2016-12-27 18:20] LABS: MANUAL DIFF NO %
[2016-12-27 18:39] LABS: BAND NEUTROPHILS 3 %; EOSINOPHILS 3 %; EOSINOPHILS ABSOLUTE (CALC) 1.08 10/3/uL (0.0-0.53); LYMPHOCYTES 15 %; MONOCYTES 4 %; MONOCYTES ABSOLUTE (CALC) 1.44 10/3/uL (0.21-1.20); NEUTROPHILS ABSOLUTE (CALC) 28.08 10/3/uL (2.02-8.40); PLATELET ESTIMATE ADQ (ADEQUATE); SEGMENTED NEUTROPHIL (0) 75 %; TOTAL NUCLEATED CELLS 100
[2016-12-27 18:40] LABS: ELLIPTOCYTES 1+ (3-10/OIF) (0-2/OIF)
[2016-12-27 21:44] LABS: ALLENS TEST Pos; BE (BASE EXCESS) -7.2 MEQ/L (0 +/- 2.5); CARBOXYHEMOGLOBIN 0.3 % (0-3); HCO3 (ACTUAL BICARBONATE) 19.9 MEQ/L (23-27); HEMOBLOGIN CONTENT 9.8 G/DL (14-18); INSTRUMENT SERIAL # 8083; METHEMOGLOBIN 0.4 % (0-3); MODE SIMV; OPERATOR ID 35785; PCO2 (CO2 TENSION) 47 MMHG (35-45); PO2 (O2 TENSION) 215 MMHG (79-93); SAMPLE Arterial; TIDAL VOLUME 700 ML; pH 7.24 (7.37-7.43)
[2016-12-28 02:08] LABS: HEMATOCRIT 26.2 % (40.0-51.0); HEMOGLOBIN 8.7 g/dL (13.6-17.8)
[2016-12-28 04:58] LABS: HEMATOCRIT 25.4 % (40.0-51.0); HEMOGLOBIN 8.7 g/dL (13.6-17.8)
[2016-12-28 09:58] LABS: HEMATOCRIT 24.7 % (40.0-51.0); HEMOGLOBIN 8.6 g/dL (13.6-17.8)
[2016-12-28 10:11] LABS: BUN (BLOOD UREA NITROGEN) 136 MG/DL (6-23); CALCIUM, SERUM 7.4 MG/DL (8.5-10.4); CHLORIDE, SERUM 121 MMOL/L (96-112); CO2 (CARBON DIOXIDE) 24 MMOL/L (24-34); CREATININE 4.35 MG/DL (0.70-1.30); GFR AFRICAN AMERICAN 14 ML/MIN (>=60); GFR NON AFRICAN AMERICAN 12 ML/MIN (>=60); GLUCOSE, SERUM 252 MG/DL (60-99); POTASSIUM, SERUM 3.9 MMOL/L (3.5-5.3); SODIUM, SERUM 153 MMOL/L (135-148)
[2016-12-28 10:14] LABS: HEMOGLOBIN 8.6 g/dL (13.6-17.8); MEAN CORPUS HGB CONC 34.4 g/dL (32.0-36.0); MEAN CORPUSCULAR HEMOGLOB 29.2 pg (26.0-34.0); MEAN CORPUSCULAR VOLUME 84.7 fL (80-100); MEAN PLATELET VOLUME 9.8 fL (9.2-13.0); NUCLEATED RED BLOOD CELLS 4.5 /100WBC (0-0); PLATELET COUNT 216 10/3/uL (150-400); RBC DISTRIBUTION WIDTH 15.6 % (12.0-16.0)
[2016-12-28 10:15] LABS: MANUAL DIFF YES %; RED CELL COUNT 2.95 10/6/uL (4.7-6.1); WHITE BLOOD CELLS 35.4 10/3/uL (4.5-10.5)
[2016-12-28 10:30] LABS: BAND NEUTROPHILS 7 %; LYMPHOCYTES 8 %; LYMPHOCYTES ABSOLUTE (CALC) 2.83 10/3/uL (0.67-4.30); NEUTROPHILS ABSOLUTE (CALC) 32.57 10/3/uL (2.02-8.40); PLATELET ESTIMATE ADQ (ADEQUATE); POLYCHROMASIA 1+ (2-5/OIF) (0-1/OIF); SEGMENTED NEUTROPHIL (0) 85 %; TOTAL NUCLEATED CELLS 100
[2016-12-28 13:26] LABS: INTERNATIONAL NORMAL RATI 2.2 UNITS (-)
[2016-12-28 13:27] LABS: PROTIME (NOT ORD) 24.3 SEC (12.0-14.5)
[2016-12-28 16:14] LABS: HEMATOCRIT 22.9 % (40.0-51.0); HEMOGLOBIN 7.8 g/dL (13.6-17.8)
[2016-12-29 00:38] LABS: HEMOGLOBIN 8.2 g/dL (13.6-17.8)
[2016-12-29 01:06] LABS: HEMATOCRIT 24.3 % (40.0-51.0); HEMOGLOBIN 8.4 g/dL (13.6-17.8)
[2016-12-29 01:38] LABS: HEMATOCRIT 24.2 % (40.0-51.0); HEMOGLOBIN 8.3 g/dL (13.6-17.8)
[2016-12-29 05:04] LABS: HEMATOCRIT 24.9 % (40.0-51.0); HEMOGLOBIN 8.2 g/dL (13.6-17.8); MEAN CORPUS HGB CONC 32.9 g/dL (32.0-36.0); MEAN CORPUSCULAR HEMOGLOB 28.8 pg (26.0-34.0); MEAN PLATELET VOLUME 10.1 fL (9.2-13.0); NUCLEATED RED BLOOD CELLS 3.4 /100WBC (0-0); RBC DISTRIBUTION WIDTH 16.4 % (12.0-16.0); RED CELL COUNT 2.85 10/6/uL (4.7-6.1)
[2016-12-29 05:05] LABS: MEAN CORPUSCULAR VOLUME 87.4 fL (80-100); PLATELET COUNT 141 10/3/uL (150-400); WHITE BLOOD CELLS 43.5 10/3/uL (4.5-10.5)
[2016-12-29 05:08] LABS: MANUAL DIFF YES %
[2016-12-29 05:15] LABS: A/G RATIO 0.8 (0.7-1.9); CHLORIDE, SERUM 121 MMOL/L (96-112); CO2 (CARBON DIOXIDE) 23 MMOL/L (24-34); GLOBULIN 2.4 G/DL (2.5-4.1); GLUCOSE, SERUM 285 MG/DL (60-99); PHOSPHORUS, SERUM 3.2 MG/DL (2.5-4.5); POTASSIUM, SERUM 3.3 MMOL/L (3.5-5.3); SGOT(AST) 201 U/L (5-40); SGPT(ALT) 186 U/L (5-65); SODIUM, SERUM 154 MMOL/L (135-148); TOTAL BILIRUBIN 0.6 MG/DL (0-1.2); TOTAL PROTEIN 4.4 G/DL (6.0-8.5)
[2016-12-29 05:18] LABS: ALKALINE PHOSPHATASE 113 U/L (45-117); BUN (BLOOD UREA NITROGEN) 123 MG/DL (6-23); GFR AFRICAN AMERICAN 18 ML/MIN (>=60); GFR NON AFRICAN AMERICAN 15 ML/MIN (>=60)
[2016-12-29 06:04] LABS: PROCALCITONIN 6.14 ng/mL (<0.5)
[2016-12-29 07:00] LABS: BAND NEUTROPHILS 6 %; IMMATURE GRANS ABSOLUTE (CALC) 0.44 10/3/uL (0.0-0.11); LYMPHOCYTES 8 %; LYMPHOCYTES ABSOLUTE (CALC) 3.48 10/3/uL (0.67-4.30); METAMYELOCYTES 1 %; NEUTROPHILS ABSOLUTE (CALC) 39.59 10/3/uL (2.02-8.40); PLATELET ESTIMATE SLT DEC (ADEQUATE); RBC MORPHOLOGY NORM (NORMAL); SEGMENTED NEUTROPHIL (0) 85 %; TOTAL NUCLEATED CELLS 100
[2016-12-29 07:56] LABS: INTERNATIONAL NORMAL RATI 1.9 UNITS (-); PROTIME (NOT ORD) 21.5 SEC (12.0-14.5)
[2016-12-29 09:57] LABS: ALLENS TEST Pos; BE (BASE EXCESS) -3.4 MEQ/L (0 +/- 2.5); CARBOXYHEMOGLOBIN 1.2 % (0-3); HCO3 (ACTUAL BICARBONATE) 20.8 MEQ/L (23-27); HEMOBLOGIN CONTENT 8.3 G/DL (14-18); INSTRUMENT SERIAL # 8083; METHEMOGLOBIN 0.4 % (0-3); MODE CMV; OPERATOR ID 13715; PCO2 (CO2 TENSION) 34 MMHG (35-45); PO2 (O2 TENSION) 80 MMHG (79-93); SAMPLE Arterial; TIDAL VOLUME 600 ML; pH 7.41 (7.37-7.43)
[2016-12-29 10:08] LABS: HEMATOCRIT 24.9 % (40.0-51.0); HEMOGLOBIN 8.4 g/dL (13.6-17.8)
[2016-12-29 17:23] LABS: HEMATOCRIT 22.5 % (40.0-51.0); HEMOGLOBIN 7.5 g/dL (13.6-17.8)
[2016-12-29 22:31] LABS: HEMOGLOBIN 8.6 g/dL (13.6-17.8)
[2016-12-29 22:33] LABS: HEMATOCRIT 26.1 % (40.0-51.0)
[2016-12-30 05:49] LABS: HEMATOCRIT 27.5 % (40.0-51.0); HEMOGLOBIN 9.3 g/dL (13.6-17.8); MEAN CORPUS HGB CONC 33.8 g/dL (32.0-36.0); MEAN CORPUSCULAR HEMOGLOB 30.2 pg (26.0-34.0); MEAN CORPUSCULAR VOLUME 89.3 fL (80-100); MEAN PLATELET VOLUME 10.3 fL (9.2-13.0); NUCLEATED RED BLOOD CELLS 3.7 /100WBC (0-0); RBC DISTRIBUTION WIDTH 16.2 % (12.0-16.0); RED CELL COUNT 3.08 10/6/uL (4.7-6.1)
[2016-12-30 05:54] LABS: MANUAL DIFF YES %; PLATELET COUNT 79 10/3/uL (150-400); WHITE BLOOD CELLS 29.8 10/3/uL (4.5-10.5)
[2016-12-30 05:58] LABS: CALCIUM, SERUM 7.9 MG/DL (8.5-10.4); CHLORIDE, SERUM 129 MMOL/L (96-112); CO2 (CARBON DIOXIDE) 25 MMOL/L (24-34); POTASSIUM, SERUM 3.2 MMOL/L (3.5-5.3)
[2016-12-30 05:59] LABS: BUN (BLOOD UREA NITROGEN) 99 MG/DL (6-23); CREATININE 2.67 MG/DL (0.70-1.30); GFR AFRICAN AMERICAN 25 ML/MIN (>=60); GFR NON AFRICAN AMERICAN 21 ML/MIN (>=60); GLUCOSE, SERUM 182 MG/DL (60-99); SODIUM, SERUM 164 MMOL/L (135-148)
[2016-12-30 06:09] LABS: INTERNATIONAL NORMAL RATI 1.5 UNITS (-); PROTIME (NOT ORD) 18.3 SEC (12.0-14.5)
[2016-12-30 06:48] LABS: BAND NEUTROPHILS 10 %; EOSINOPHILS 1 %; IMMATURE GRANS ABSOLUTE (CALC) 2.09 10/3/uL (0.0-0.11); LYMPHOCYTES 14 %; LYMPHOCYTES ABSOLUTE (CALC) 4.17 10/3/uL (0.67-4.30); METAMYELOCYTES 5 %; MONOCYTES 6 %; MONOCYTES ABSOLUTE (CALC) 1.79 10/3/uL (0.21-1.20); MYELOCYTES 2 %; NEUTROPHILS ABSOLUTE (CALC) 21.46 10/3/uL (2.02-8.40); PLATELET ESTIMATE DEC (ADEQUATE); SEGMENTED NEUTROPHIL (0) 62 %; TOTAL NUCLEATED CELLS 100; TOXIC GRANULATION 1+; VACUOLATED NEUTROPHILES OCC
[2016-12-30 06:49] LABS: ANISOCYTOSIS 1+ (5-10/OIF) (0-5/OIF); MACROCYTES 1+ (5-10/OIF) (0-5/OIF); MICROCYTES 1+ (5-10/OIF) (0-5/OIF); POLYCHROMASIA 1+ (2-5/OIF) (0-1/OIF); TEARDROP SHAPED RBCS OCC (0-2/OIF)
[2016-12-30 06:50] LABS: HELMET CELLS OCC (0-2/OIF); SPHEROCYTES OCC (0-2/OIF); TARGET CELLS OCC (1-2/OIF) (0-1/OIF)
[2016-12-30 14:19] LABS: HEMATOCRIT 27.5 % (40.0-51.0); HEMOGLOBIN 9.1 g/dL (13.6-17.8)
[2016-12-30 14:33] LABS: CALCIUM, SERUM 7.7 MG/DL (8.5-10.4); CHLORIDE, SERUM 131 MMOL/L (96-112); CO2 (CARBON DIOXIDE) 26 MMOL/L (24-34); CREATININE 2.47 MG/DL (0.70-1.30); GFR AFRICAN AMERICAN 27 ML/MIN (>=60); GFR NON AFRICAN AMERICAN 23 ML/MIN (>=60); GLUCOSE, SERUM 183 MG/DL (60-99); POTASSIUM, SERUM 3.5 MMOL/L (3.5-5.3)
[2016-12-30 14:34] LABS: BUN (BLOOD UREA NITROGEN) 89 MG/DL (6-23); SODIUM, SERUM 164 MMOL/L (135-148)
[2016-12-30 20:13] LABS: HEMOGLOBIN 9.1 g/dL (13.6-17.8)
[2016-12-30 20:27] LABS: CALCIUM, SERUM 7.6 MG/DL (8.5-10.4); CHLORIDE, SERUM 130 MMOL/L (96-112); CO2 (CARBON DIOXIDE) 27 MMOL/L (24-34); CREATININE 2.25 MG/DL (0.70-1.30); GFR AFRICAN AMERICAN 30 ML/MIN (>=60); GFR NON AFRICAN AMERICAN 26 ML/MIN (>=60); GLUCOSE, SERUM 200 MG/DL (60-99); POTASSIUM, SERUM 3.8 MMOL/L (3.5-5.3)
[2016-12-30 20:28] LABS: BUN (BLOOD UREA NITROGEN) 83 MG/DL (6-23); SODIUM, SERUM 163 MMOL/L (135-148)
[2016-12-31 06:47] LABS: HEMATOCRIT 26.7 % (40.0-51.0); HEMOGLOBIN 8.6 g/dL (13.6-17.8); MANUAL DIFF YES %; MEAN CORPUS HGB CONC 32.2 g/dL (32.0-36.0); MEAN PLATELET VOLUME 11.3 fL (9.2-13.0); NUCLEATED RED BLOOD CELLS 2.7 /100WBC (0-0); PLATELET COUNT 59 10/3/uL (150-400); RBC DISTRIBUTION WIDTH 18.4 % (12.0-16.0); RED CELL COUNT 2.87 10/6/uL (4.7-6.1); WHITE BLOOD CELLS 20.3 10/3/uL (4.5-10.5)
[2016-12-31 06:50] LABS: INTERNATIONAL NORMAL RATI 1.6 UNITS (-); PROTIME (NOT ORD) 18.8 SEC (12.0-14.5)
[2016-12-31 06:57] LABS: CHLORIDE, SERUM 127 MMOL/L (96-112); CO2 (CARBON DIOXIDE) 26 MMOL/L (24-34); CREATININE 2.02 MG/DL (0.70-1.30); GFR AFRICAN AMERICAN 35 ML/MIN (>=60); GFR NON AFRICAN AMERICAN 30 ML/MIN (>=60); GLUCOSE, SERUM 205 MG/DL (60-99); PHOSPHORUS, SERUM 3.2 MG/DL (2.5-4.5); POTASSIUM, SERUM 3.4 MMOL/L (3.5-5.3)
[2016-12-31 06:58] LABS: BUN (BLOOD UREA NITROGEN) 70 MG/DL (6-23); SODIUM, SERUM 160 MMOL/L (135-148)
[2016-12-31 07:21] LABS: ANISOCYTOSIS 1+ (5-10/OIF) (0-5/OIF); BAND NEUTROPHILS 5 %; EOSINOPHILS 1 %; IMMATURE GRANS ABSOLUTE (CALC) 1.22 10/3/uL (0.0-0.11); LYMPHOCYTES 20 %; LYMPHOCYTES ABSOLUTE (CALC) 4.06 10/3/uL (0.67-4.30); METAMYELOCYTES 4 %; MONOCYTES 5 %; MONOCYTES ABSOLUTE (CALC) 1.02 10/3/uL (0.21-1.20); MYELOCYTES 2 %; PLATELET ESTIMATE DEC (ADEQUATE); SEGMENTED NEUTROPHIL (0) 63 %; TOTAL NUCLEATED CELLS 100; TOXIC GRANULATION 1+
[2016-12-31 07:22] LABS: POLYCHROMASIA 1+ (2-5/OIF) (0-1/OIF); VACUOLATED NEUTROPHILES OCC
[2016-12-31 07:23] LABS: HELMET CELLS OCC (0-2/OIF); HYPOCHROMIA 1+ (3-10/OIF) (0-2/OIF); MACROCYTES 1+ (5-10/OIF) (0-5/OIF); MICROCYTES 1+ (5-10/OIF) (0-5/OIF); TEARDROP SHAPED RBCS OCC (0-2/OIF)
[2016-12-31 11:46] LABS: HEMATOCRIT 26.9 % (40.0-51.0); HEMOGLOBIN 8.6 g/dL (13.6-17.8)
[2016-12-31 20:44] LABS: HEMATOCRIT 27.8 % (40.0-51.0); HEMOGLOBIN 8.8 g/dL (13.6-17.8)
[2017-01-01 05:35] LABS: ALBUMIN 2.2 G/DL (3.5-5.0); CALCIUM, SERUM 7.6 MG/DL (8.5-10.4); CHLORIDE, SERUM 124 MMOL/L (96-112); CO2 (CARBON DIOXIDE) 26 MMOL/L (24-34); CREATININE 1.68 MG/DL (0.70-1.30); GFR AFRICAN AMERICAN 43 ML/MIN (>=60); GFR NON AFRICAN AMERICAN 37 ML/MIN (>=60); GLUCOSE, SERUM 173 MG/DL (60-99); PHOSPHORUS, SERUM 3.3 MG/DL (2.5-4.5); POTASSIUM, SERUM 3.1 MMOL/L (3.5-5.3)
[2017-01-01 05:36] LABS: INTERNATIONAL NORMAL RATI 1.5 UNITS (-); PROTIME (NOT ORD) 18.1 SEC (12.0-14.5)
[2017-01-01 05:36] LABS: BUN (BLOOD UREA NITROGEN) 56 MG/DL (6-23); SODIUM, SERUM 157 MMOL/L (135-148)
[2017-01-01 05:48] LABS: BASOPHILS 0.2 %; BASOPHILS ABSOLUTE 0.03 10/3/uL (0.0-0.16); EOSINOPHILS 0.3 %; EOSINOPHILS ABSOLUTE 0.05 10/3/uL (0.0-0.53); HEMATOCRIT 28.8 % (40.0-51.0); HEMOGLOBIN 9.1 g/dL (13.6-17.8); IMMATURE GRANULOCYTES 2.5 %; IMMATURE GRANULOCYTES ABSOLUTE 0.44 10/3/uL (0.0-0.11); LYMPHOCYTES 14.1 %; LYMPHOCYTES ABSOLUTE 2.48 10/3/uL (0.67-4.30); MEAN CORPUS HGB CONC 31.6 g/dL (32.0-36.0); MEAN PLATELET VOLUME 11.2 fL (9.2-13.0); MONOCYTES 4.7 %; MONOCYTES ABSOLUTE 0.82 10/3/uL (0.21-1.20); NEUTROPHILS 78.2 %; NEUTROPHILS ABSOLUTE 13.74 10/3/uL (2.02-8.40); NUCLEATED RED BLOOD CELLS 1.6 /100WBC (0-0); RBC DISTRIBUTION WIDTH 19.4 % (12.0-16.0); RED CELL COUNT 3.03 10/6/uL (4.7-6.1); WHITE BLOOD CELLS 17.6 10/3/uL (4.5-10.5)
[2017-01-01 05:53] LABS: PLATELET COUNT 44 10/3/uL (150-400)
[2017-01-01 05:54] LABS: MANUAL DIFF NO %
[2017-01-01 06:09] LABS: ANISOCYTOSIS 1+ (5-10/OIF) (0-5/OIF); HYPOCHROMIA 1+ (3-10/OIF) (0-2/OIF)
[2017-01-01 06:10] LABS: POLYCHROMASIA 1+ (2-5/OIF) (0-1/OIF); TEARDROP SHAPED RBCS OCC (0-2/OIF)
[2017-01-01 17:35] LABS: CALCIUM, SERUM 7.7 MG/DL (8.5-10.4); CHLORIDE, SERUM 126 MMOL/L (96-112); CO2 (CARBON DIOXIDE) 26 MMOL/L (24-34); CREATININE 1.52 MG/DL (0.70-1.30); GFR AFRICAN AMERICAN 49 ML/MIN (>=60); GFR NON AFRICAN AMERICAN 42 ML/MIN (>=60); GLUCOSE, SERUM 161 MG/DL (60-99); POTASSIUM, SERUM 3.5 MMOL/L (3.5-5.3); SODIUM, SERUM 152 MMOL/L (135-148)
[2017-01-01 17:36] LABS: BUN (BLOOD UREA NITROGEN) 49 MG/DL (6-23)
[2017-01-02 05:51] LABS: BASOPHILS 0.1 %; BASOPHILS ABSOLUTE 0.01 10/3/uL (0.0-0.16); EOSINOPHILS ABSOLUTE 0.12 10/3/uL (0.0-0.53); HEMATOCRIT 26.1 % (40.0-51.0); HEMOGLOBIN 8.1 g/dL (13.6-17.8); IMMATURE GRANULOCYTES 1.1 %; IMMATURE GRANULOCYTES ABSOLUTE 0.13 10/3/uL (0.0-0.11); LYMPHOCYTES 14.8 %; LYMPHOCYTES ABSOLUTE 1.75 10/3/uL (0.67-4.30); MEAN CORPUSCULAR HEMOGLOB 29.8 pg (26.0-34.0); MONOCYTES 4.3 %; MONOCYTES ABSOLUTE 0.51 10/3/uL (0.21-1.20); NEUTROPHILS 78.7 %; NEUTROPHILS ABSOLUTE 9.29 10/3/uL (2.02-8.40); RBC DISTRIBUTION WIDTH 19.7 % (12.0-16.0); RED CELL COUNT 2.72 10/6/uL (4.7-6.1); WHITE BLOOD CELLS 11.8 10/3/uL (4.5-10.5)
[2017-01-02 05:52] LABS: MANUAL DIFF NO %; PLATELET COUNT 35 10/3/uL (150-400)
[2017-01-02 05:58] LABS: INTERNATIONAL NORMAL RATI 1.6 UNITS (-); PROTIME (NOT ORD) 18.8 SEC (12.0-14.5)
[2017-01-02 06:04] LABS: BUN (BLOOD UREA NITROGEN) 44 MG/DL (6-23); CALCIUM, SERUM 7.7 MG/DL (8.5-10.4); CHLORIDE, SERUM 124 MMOL/L (96-112); CO2 (CARBON DIOXIDE) 25 MMOL/L (24-34); CREATININE 1.33 MG/DL (0.70-1.30); GFR AFRICAN AMERICAN 57 ML/MIN (>=60); GFR NON AFRICAN AMERICAN 49 ML/MIN (>=60); GLUCOSE, SERUM 144 MG/DL (60-99); POTASSIUM, SERUM 3.5 MMOL/L (3.5-5.3); SODIUM, SERUM 153 MMOL/L (135-148)
[2017-01-02 06:17] LABS: ANISOCYTOSIS 1+ (5-10/OIF) (0-5/OIF); MACROCYTES 1+ (5-10/OIF) (0-5/OIF)
[2017-01-02 06:18] LABS: HELMET CELLS OCC (0-2/OIF); TEARDROP SHAPED RBCS OCC (0-2/OIF)
[2017-01-02 11:16] LABS: PROCALCITONIN 0.38 ng/mL (<0.5)
[2017-01-02 17:29] LABS: ALBUMIN 2.2 G/DL (3.5-5.0); CALCIUM, SERUM 7.5 MG/DL (8.5-10.4); CHLORIDE, SERUM 122 MMOL/L (96-112); CO2 (CARBON DIOXIDE) 25 MMOL/L (24-34); CREATININE 1.36 MG/DL (0.70-1.30); GFR AFRICAN AMERICAN 56 ML/MIN (>=60); GFR NON AFRICAN AMERICAN 48 ML/MIN (>=60); GLOBULIN 2.2 G/DL (2.5-4.1); GLUCOSE, SERUM 155 MG/DL (60-99); PHOSPHORUS, SERUM 2.7 MG/DL (2.5-4.5); POTASSIUM, SERUM 3.3 MMOL/L (3.5-5.3); PREALBUMIN 17.7 MG/DL (17.0-43.0); SGOT(AST) 23 U/L (5-40); SGPT(ALT) 54 U/L (5-65); SODIUM, SERUM 149 MMOL/L (135-148); TOTAL BILIRUBIN 0.9 MG/DL (0-1.2); TOTAL PROTEIN 4.4 G/DL (6.0-8.5)
[2017-01-02 17:30] LABS: ALKALINE PHOSPHATASE 88 U/L (45-117); BUN (BLOOD UREA NITROGEN) 38 MG/DL (6-23)
[2017-01-02 19:48] LABS: WBC (NOT ORDERED) (RFLEX) 0 (0-5)
[2017-01-02 20:05] LABS: ASCORBIC ACID (UR NOT ORDER) NEG (NEG); BILIRUBIN, URINE NEGATIVE (NEG); KETONE, URINE NEGATIVE (NEG); LEUKOCYTE ESTERASE(NOT OR NEG (NEG)
[2017-01-03 06:05] LABS: BASOPHILS 0.1 %; BASOPHILS ABSOLUTE 0.01 10/3/uL (0.0-0.16); EOSINOPHILS 1.2 %; EOSINOPHILS ABSOLUTE 0.14 10/3/uL (0.0-0.53); HEMATOCRIT 25.8 % (40.0-51.0); HEMOGLOBIN 8.2 g/dL (13.6-17.8); IMMATURE GRANULOCYTES 0.9 %; IMMATURE GRANULOCYTES ABSOLUTE 0.11 10/3/uL (0.0-0.11); LYMPHOCYTES 12.3 %; LYMPHOCYTES ABSOLUTE 1.49 10/3/uL (0.67-4.30); MANUAL DIFF NO %; MEAN CORPUS HGB CONC 31.8 g/dL (32.0-36.0); MEAN CORPUSCULAR HEMOGLOB 30.1 pg (26.0-34.0); MEAN CORPUSCULAR VOLUME 94.9 fL (80-100); MEAN PLATELET VOLUME 11.1 fL (9.2-13.0); MONOCYTES 4.9 %; MONOCYTES ABSOLUTE 0.59 10/3/uL (0.21-1.20); NEUTROPHILS 80.6 %; NEUTROPHILS ABSOLUTE 9.77 10/3/uL (2.02-8.40); PLATELET COUNT 37 10/3/uL (150-400); RBC DISTRIBUTION WIDTH 19.3 % (12.0-16.0); RED CELL COUNT 2.72 10/6/uL (4.7-6.1); WHITE BLOOD CELLS 12.1 10/3/uL (4.5-10.5)
[2017-01-03 06:11] LABS: INTERNATIONAL NORMAL RATI 1.8 UNITS (-); PROTIME (NOT ORD) 20.3 SEC (12.0-14.5)
[2017-01-03 06:24] LABS: ANISOCYTOSIS 1+ (5-10/OIF) (0-5/OIF)
[2017-01-03 06:25] LABS: TEARDROP SHAPED RBCS OCC (0-2/OIF)
[2017-01-03 06:45] LABS: BUN (BLOOD UREA NITROGEN) 37 MG/DL (6-23); CALCIUM, SERUM 7.5 MG/DL (8.5-10.4); CHLORIDE, SERUM 122 MMOL/L (96-112); CO2 (CARBON DIOXIDE) 24 MMOL/L (24-34); CREATININE 1.24 MG/DL (0.70-1.30); GFR AFRICAN AMERICAN 62 ML/MIN (>=60); GFR NON AFRICAN AMERICAN 54 ML/MIN (>=60); GLUCOSE, SERUM 140 MG/DL (60-99); PHOSPHORUS, SERUM 2.5 MG/DL (2.5-4.5); POTASSIUM, SERUM 3.6 MMOL/L (3.5-5.3); SODIUM, SERUM 152 MMOL/L (135-148)
[2017-01-03 12:44] LABS: CREATININE, URINE 94.3 MG/DL
[2017-01-04 12:39] LABS: BUN (BLOOD UREA NITROGEN) 34 MG/DL (6-23); CALCIUM, SERUM 7.4 MG/DL (8.5-10.4); CHLORIDE, SERUM 117 MMOL/L (96-112); CO2 (CARBON DIOXIDE) 23 MMOL/L (24-34); CREATININE 1.19 MG/DL (0.70-1.30); GFR AFRICAN AMERICAN 66 ML/MIN (>=60); GFR NON AFRICAN AMERICAN 57 ML/MIN (>=60); PHOSPHORUS, SERUM 2.4 MG/DL (2.5-4.5); POTASSIUM, SERUM 3.9 MMOL/L (3.5-5.3); TRIGLYCERIDE 104 MG/DL (< 150)
[2017-01-04 12:40] LABS: GLUCOSE, SERUM 182 MG/DL (60-99); SODIUM, SERUM 145 MMOL/L (135-148)
[2017-01-05 04:18] LABS: BASOPHILS 0 %; EOSINOPHILS 2.3 %; EOSINOPHILS ABSOLUTE 0.24 10/3/uL (0.0-0.53); HEMATOCRIT 24.9 % (40.0-51.0); HEMOGLOBIN 7.9 g/dL (13.6-17.8); IMMATURE GRANULOCYTES 0.6 %; IMMATURE GRANULOCYTES ABSOLUTE 0.06 10/3/uL (0.0-0.11); LYMPHOCYTES 11.9 %; LYMPHOCYTES ABSOLUTE 1.22 10/3/uL (0.67-4.30); MEAN CORPUS HGB CONC 31.7 g/dL (32.0-36.0); MEAN CORPUSCULAR HEMOGLOB 30.2 pg (26.0-34.0); MEAN PLATELET VOLUME 11.2 fL (9.2-13.0); MONOCYTES 6.1 %; MONOCYTES ABSOLUTE 0.63 10/3/uL (0.21-1.20); NEUTROPHILS 79.1 %; NEUTROPHILS ABSOLUTE 8.11 10/3/uL (2.02-8.40); RED CELL COUNT 2.62 10/6/uL (4.7-6.1); WHITE BLOOD CELLS 10.3 10/3/uL (4.5-10.5)
[2017-01-05 04:24] LABS: MANUAL DIFF NO %; PLATELET COUNT 60 10/3/uL (150-400)
[2017-01-05 04:27] LABS: CALCIUM, SERUM 7.5 MG/DL (8.5-10.4); CHLORIDE, SERUM 116 MMOL/L (96-112); CO2 (CARBON DIOXIDE) 22 MMOL/L (24-34); CREATININE 1.16 MG/DL (0.70-1.30); GFR AFRICAN AMERICAN 68 ML/MIN (>=60); GFR NON AFRICAN AMERICAN 58 ML/MIN (>=60); GLUCOSE, SERUM 193 MG/DL (60-99); PHOSPHORUS, SERUM 2.6 MG/DL (2.5-4.5); POTASSIUM, SERUM 3.8 MMOL/L (3.5-5.3); SODIUM, SERUM 145 MMOL/L (135-148)
[2017-01-05 04:28] LABS: BUN (BLOOD UREA NITROGEN) 38 MG/DL (6-23)
[2017-01-05 06:12] LABS: ANISOCYTOSIS 1+ (5-10/OIF) (0-5/OIF); HYPOCHROMIA 1+ (3-10/OIF) (0-2/OIF); MICROCYTES 1+ (5-10/OIF) (0-5/OIF); PLATELET ESTIMATE DEC (ADEQUATE)
[2017-01-05 18:07] LABS: TROPONIN I 0.03 NG/ML (<0.05)
[2017-01-06 05:18] LABS: BASOPHILS 0 %; EOSINOPHILS 0.5 %; EOSINOPHILS ABSOLUTE 0.09 10/3/uL (0.0-0.53); HEMOGLOBIN 9.3 g/dL (13.6-17.8); IMMATURE GRANULOCYTES 0.4 %; IMMATURE GRANULOCYTES ABSOLUTE 0.07 10/3/uL (0.0-0.11); LYMPHOCYTES 6.6 %; LYMPHOCYTES ABSOLUTE 1.13 10/3/uL (0.67-4.30); MEAN CORPUS HGB CONC 32.1 g/dL (32.0-36.0); MEAN CORPUSCULAR HEMOGLOB 29.9 pg (26.0-34.0); MEAN CORPUSCULAR VOLUME 93.2 fL (80-100); MEAN PLATELET VOLUME 10.4 fL (9.2-13.0); MONOCYTES 7.4 %; MONOCYTES ABSOLUTE 1.28 10/3/uL (0.21-1.20); NEUTROPHILS 85.1 %; NEUTROPHILS ABSOLUTE 14.62 10/3/uL (2.02-8.40); RBC DISTRIBUTION WIDTH 19.2 % (12.0-16.0); RED CELL COUNT 3.11 10/6/uL (4.7-6.1)
[2017-01-06 05:20] LABS: MANUAL DIFF NO %; PLATELET COUNT 91 10/3/uL (150-400); WHITE BLOOD CELLS 17.2 10/3/uL (4.5-10.5)
[2017-01-06 05:27] LABS: A/G RATIO 0.7 (0.7-1.9); ALBUMIN 2.3 G/DL (3.5-5.0); ALKALINE PHOSPHATASE 121 U/L (45-117); BUN (BLOOD UREA NITROGEN) 36 MG/DL (6-23); CALCIUM, SERUM 7.8 MG/DL (8.5-10.4); CHLORIDE, SERUM 116 MMOL/L (96-112); CO2 (CARBON DIOXIDE) 23 MMOL/L (24-34); CREATININE 1.36 MG/DL (0.70-1.30); GFR AFRICAN AMERICAN 56 ML/MIN (>=60); GFR NON AFRICAN AMERICAN 48 ML/MIN (>=60); GLOBULIN 3.1 G/DL (2.5-4.1); GLUCOSE, SERUM 128 MG/DL (60-99); PHOSPHORUS, SERUM 2.6 MG/DL (2.5-4.5); POTASSIUM, SERUM 3.5 MMOL/L (3.5-5.3); SGOT(AST) 23 U/L (5-40); SGPT(ALT) 35 U/L (5-65); SODIUM, SERUM 147 MMOL/L (135-148); TOTAL BILIRUBIN 1.5 MG/DL (0-1.2); TOTAL PROTEIN 5.4 G/DL (6.0-8.5)
[2017-01-06 05:28] LABS: INTERNATIONAL NORMAL RATI 1.4 UNITS (-); PROTIME (NOT ORD) 17.3 SEC (12.0-14.5)
[2017-01-07 06:19] LABS: BASOPHILS 0 %; EOSINOPHILS 0.2 %; EOSINOPHILS ABSOLUTE 0.02 10/3/uL (0.0-0.53); IMMATURE GRANULOCYTES 0.2 %; IMMATURE GRANULOCYTES ABSOLUTE 0.02 10/3/uL (0.0-0.11); LYMPHOCYTES ABSOLUTE 0.78 10/3/uL (0.67-4.30); MEAN CORPUS HGB CONC 31.6 g/dL (32.0-36.0); MEAN CORPUSCULAR VOLUME 95.1 fL (80-100); MONOCYTES 6.1 %; MONOCYTES ABSOLUTE 0.79 10/3/uL (0.21-1.20); NEUTROPHILS 87.5 %; NEUTROPHILS ABSOLUTE 11.38 10/3/uL (2.02-8.40); PLATELET COUNT 82 10/3/uL (150-400); RBC DISTRIBUTION WIDTH 19.1 % (12.0-16.0)
[2017-01-07 06:20] LABS: HEMATOCRIT 23.1 % (40.0-51.0); HEMOGLOBIN 7.3 g/dL (13.6-17.8); RED CELL COUNT 2.43 10/6/uL (4.7-6.1)
[2017-01-07 06:21] LABS: MANUAL DIFF NO %
[2017-01-07 06:30] LABS: CALCIUM, SERUM 7.7 MG/DL (8.5-10.4); CHLORIDE, SERUM 117 MMOL/L (96-112); CO2 (CARBON DIOXIDE) 22 MMOL/L (24-34); CREATININE 1.75 MG/DL (0.70-1.30); GFR AFRICAN AMERICAN 41 ML/MIN (>=60); GFR NON AFRICAN AMERICAN 35 ML/MIN (>=60); SGOT(AST) 24 U/L (5-40); SGPT(ALT) 27 U/L (5-65); SODIUM, SERUM 147 MMOL/L (135-148); TOTAL BILIRUBIN 1.2 MG/DL (0-1.2); TOTAL PROTEIN 4.6 G/DL (6.0-8.5)
[2017-01-07 06:31] LABS: A/G RATIO 0.5 (0.7-1.9); ALBUMIN 1.6 G/DL (3.5-5.0); ALKALINE PHOSPHATASE 94 U/L (45-117); BUN (BLOOD UREA NITROGEN) 46 MG/DL (6-23); GLUCOSE, SERUM 180 MG/DL (60-99)
[2017-01-07 16:46] LABS: HEMATOCRIT 24.7 % (40.0-51.0); HEMOGLOBIN 7.8 g/dL (13.6-17.8)
[2017-01-08 04:38] LABS: BASOPHILS 0.1 %; BASOPHILS ABSOLUTE 0.01 10/3/uL (0.0-0.16); EOSINOPHILS 0.6 %; EOSINOPHILS ABSOLUTE 0.07 10/3/uL (0.0-0.53); HEMOGLOBIN 9.3 g/dL (13.6-17.8); IMMATURE GRANULOCYTES 0.3 %; IMMATURE GRANULOCYTES ABSOLUTE 0.03 10/3/uL (0.0-0.11); LYMPHOCYTES 6.7 %; LYMPHOCYTES ABSOLUTE 0.78 10/3/uL (0.67-4.30); MEAN CORPUS HGB CONC 31.7 g/dL (32.0-36.0); MEAN CORPUSCULAR HEMOGLOB 29.5 pg (26.0-34.0); MEAN PLATELET VOLUME 10.7 fL (9.2-13.0); NEUTROPHILS 86.3 %; PLATELET COUNT 82 10/3/uL (150-400); WHITE BLOOD CELLS 11.6 10/3/uL (4.5-10.5)
[2017-01-08 04:53] LABS: HEMATOCRIT 29.3 % (40.0-51.0); RED CELL COUNT 3.15 10/6/uL (4.7-6.1)
[2017-01-08 04:54] LABS: MANUAL DIFF NO %
[2017-01-08 05:05] LABS: BUN (BLOOD UREA NITROGEN) 57 MG/DL (6-23); CALCIUM, SERUM 7.9 MG/DL (8.5-10.4); CHLORIDE, SERUM 118 MMOL/L (96-112); CO2 (CARBON DIOXIDE) 22 MMOL/L (24-34); GFR AFRICAN AMERICAN 40 ML/MIN (>=60); GFR NON AFRICAN AMERICAN 34 ML/MIN (>=60); GLUCOSE, SERUM 175 MG/DL (60-99); PHOSPHORUS, SERUM 4.2 MG/DL (2.5-4.5); POTASSIUM, SERUM 3.7 MMOL/L (3.5-5.3); SODIUM, SERUM 148 MMOL/L (135-148); TRIGLYCERIDE 65 MG/DL (< 150)
== END 2017-01-08 05:30 | disposition expired | DRG 871 ==
LOC: IMCU 16:06 → MIC 12-27 19:23 → IMCU 12-30 11:08
PROVIDERS: Hospitalist; Internal Medicine; Internal Medicine Gastroenterology; Internal Medicine Nephrology; Internal Medicine Pulmonary Disease; Nurse Practitioner Family
PROC: 3E0G8GC Introduction of Other Therapeutic Substance into Upper GI, Via Natural or Artificial Opening Endoscopic (ICD-10-PCS; principal; 2016-12-27 20:10)
DX: A41.9 Sepsis, unspecified organism (principal); G93.41 Metabolic encephalopathy; J96.01 Acute respiratory failure with hypoxia; T79.4XXA Traumatic shock, initial encounter; J18.9 Pneumonia, unspecified organism; N17.9 Acute kidney failure, unspecified; E87.2 Acidosis; E87.3 Alkalosis; I48.91 Unspecified atrial fibrillation; K92.1 Melena; I25.10 Atherosclerotic heart disease of native coronary artery without angina pectoris; I10 Essential (primary) hypertension; N40.0 Benign prostatic hyperplasia without lower urinary tract symptoms; E78.5 Hyperlipidemia, unspecified; Z66 Do not resuscitate; I25.2 Old myocardial infarction; Z87.891 Personal history of nicotine dependence; Z79.01 Long term (current) use of anticoagulants; Z82.49 Family history of ischemic heart disease and other diseases of the circulatory system
CPT/HCPCS: 31720; 36415; 36569; 36600; 71010; 74000; 76705; 80048; 80053; 80069; 81001; 82140; 82272; 82330; 82533; 82550; 82570; 82607; 82728; 82803; 82805; 82947; 82962; 83036; 83540; 83550; 83605; 83735; 83880; 84100; 84132; 84134; 84145; 84295; 84300; 84443; 84478; 84484; 84540; 85014; 85018; 85025; 85610; 85730; 86850; 86900; 86901; 86920; 87040; 87070; 87205; 87449; 87493; 87493-59; 87641; 92610-GN; 93005; 94002; 94003; 94640; 94660; 94667; 94668; A9270-GY; C1751; C8929; C9113; J0282; J0360; J0456; J1205; J1450; J1720; J2250; J2370; J2405; J2597; J3010; J3475; P9016; P9035; P9047; P9059; Q9957